=== PATIENT | male | born 1925 | race Caucasian/White ===

== ENCOUNTER → 2016-07-11 | Outpatient (CLI) | payer BC ==
[~2016-07-11] MED LIST: ALFA250T PO; ASCA500 PO; ASPI-435 PO; ATOR-26 PO; CALC500T83 PO; CHOL1000 PO; CIPR-255 PO; CMD5 PO; ISOS30TA3 PO; LSN5 PO; LVNIS100 SQ; METO25TA56 PO; MULT-506 PO; NTRGSL/4 UT; TICA1TAB PO; TPRSR/50 PO; TPRSR50 PO; WARF-246 PO; WARF6TAB5 PO
[2016-07-11 17:34] LABS: BASO % 0.3 %; BASO ABS # 0.02 K/uL (0-0.2); COMPLETE YES; EOS % 1.9 %; HEMATOCRIT 40.9 % (42-52); IG% 0.1 %; LYMPH % 19.6 %; LYMPH ABS # 1.45 K/uL (1.2-3.4); MEAN CELL VOLUME 98.6 fL (80-100); MEAN CORPUSCULAR HEMOGLOBIN 32.3 pg (25-34); MEAN CORPUSCULAR HGB CONC 32.8 g/dl (32-36); MEAN PLATELET VOLUME 11.4 fL (7.4-10.4); MONO % 8.8 %; NEUT % 69.3 %; PLATELET COUNT 142 K/uL (130-400); RED BLOOD COUNT 4.15 M/uL (4.7-6.1); WHITE BLOOD COUNT 7.38 K/uL (4.8-10.8)
[2016-07-11 17:48] LABS: ALT/SGPT 32 U/L (12-78); AST/SGOT 27 U/L (15-37); BLOOD UREA NITROGEN 21 mg/dl (7-18); BUN/CREATININE RATIO 21.6 (10-20); CALCIUM 8.7 mg/dl (8.5-10.1); CARBON DIOXIDE 28 mmol/L (21-32); CHLORIDE 107 mmol/L (98-107); CREATININE 0.99 mg/dl (0.60-1.40); GLUCOSE 87 mg/dl (70-99); POTASSIUM 4.3 mmol/L (3.5-5.1); SODIUM 141 mmol/L (136-145)
[2016-07-11 17:51] LABS: ALB/GLOB RATIO 1.3 (0.9-2); ALKALINE PHOSPHATASE 49 U/L (45-117); CHOLESTEROL 144 mg/dl (0-200); CHOLESTEROL/HDL RATIO 2.1; HDL CHOLESTEROL 70 mg/dl; LDL CHOLESTEROL CALCULATED 54 mg/dl; TRIGLYCERIDES 99 mg/dl (0-150); VERY LOW DENSITY LIPOPROT CALC 20 mg/dl
--- NOTE | 2016-07-18 11:21 | CODING QUERY MEDICAL NECESSITY ---
SUPPORTING DIAGNOSIS NEEDED Dr. Chicas, A supporting diagnosis is required for the test/procedure performed on this patient in order for us to be reimbursed by the patient's insurance. Please provide a supporting diagnosis for the following test/procedure listed below next to the test name along with your signature. *If there is no additional diagnosis for this patient that would support the following test/procedure please document that below next to the test/procedure. Test(s)/Procedure(s) that require a supporting diagnosis: * ([id number]) VITAMIN D ASSAY DIAGNOSIS: DATE OF SERVICE: 07/11/16 Provider Signature: Date: Thank you Abdoul Smiley [facility] Information Management Once completed, please kindly fax back to [phone] For questions please call [phone]
== END | disposition home or self-care (01) ==
LOC: C.LABPBG 11:08
PROVIDERS: ATTEND Internal Medicine Geriatric Medicine
DX: Z00.00 Encounter for general adult medical examination without abnormal findings (principal); M19.90 Unspecified osteoarthritis, unspecified site; E78.5 Hyperlipidemia, unspecified; R41.81 Age-related cognitive decline; R49.0 Dysphonia; I25.110 Atherosclerotic heart disease of native coronary artery with unstable angina pectoris

== ENCOUNTER 2016-08-14 06:20 | Inpatient (IN) | payer BC, OTHER ==
[~2016-08-14] VITALS: Ht 172.7 cm; Wt 66.0 kg
[~2016-08-14 06:20] MED LIST changes: -CIPR-255 PO; -CMD5 PO; -LSN5 PO; -LVNIS100 SQ; -TPRSR/50 PO; -TPRSR50 PO; -WARF-246 PO; -WARF6TAB5 PO
--- NOTE | 2016-08-14 07:04 | DIAGNOSTIC IMAGING REPORT ---
CHEST ONE VIEW PORTABLE CLINICAL HISTORY: Atypical chest pain. Dry cough. COMPARISON STUDY: 12/30/2015, 06/17/2015 FINDINGS: The cardiac and mediastinal contours remain stable. There is no focal pulmonary consolidation. There are no pleural effusions. There is no failure. There is a 1 cm right midlung zone opacity, similar to the preceding study. Increased interstitial markings are also present within the right midlung zone. IMPRESSION: Residual 1 cm right midlung zone opacity, similar to the preceding study, but smaller than on the prior examination dated 06/17/2015. No evidence of failure. No acute parenchymal consolidation Electronically signed by: Jacob Valentine M.D. 08/14/2016 7:03 AM Dictated Date/Time: 08/14/2016 7:00 AM
[2016-08-14 07:06] LABS: BASO % 0.9 %; BASO ABS # 0.08 K/uL (0-0.2); COMPLETE YES; EOS % 1.5 %; HEMATOCRIT 33.8 % (42-52); IG% 0.7 %; LYMPH % 14.3 %; LYMPH ABS # 1.21 K/uL (1.2-3.4); MEAN CELL VOLUME 94.4 fL (80-100); MEAN CORPUSCULAR HEMOGLOBIN 32.4 pg (25-34); MEAN CORPUSCULAR HGB CONC 34.3 g/dl (32-36); MEAN PLATELET VOLUME 9.7 fL (7.4-10.4); MONO % 5.5 %; NEUT % 77.1 %; PLATELET COUNT 258 K/uL (130-400); RED BLOOD COUNT 3.58 M/uL (4.7-6.1); WHITE BLOOD COUNT 8.49 K/uL (4.8-10.8)
[2016-08-14 07:10] LABS: POINT OF CARE PRO-BNP 4687 pg/ml (0-1800); POINT OF CARE TROPONIN I < 0.030 ng/ml (0-0.045)
[2016-08-14 07:17] LABS: BUN/CREATININE RATIO 17.6 (10-20); POTASSIUM 4.2 mmol/L (3.5-5.1)
[2016-08-14 07:22] LABS: CKMB/CK RATIO 4.3 (0-3.0)
[2016-08-14] MEDS ORDERED: ASPIRIN 81 MG CHEW PO STA (07:30)
--- NOTE | 2016-08-14 07:43 | EMERGENCY ROOM VISIT NOTE ---
History Report prepared by Yaritza: Jose Boyer Under the Supervision of: Dr. Josh Cali M.D. First contact with patient: 06:28 Chief Complaint: CHEST PAIN Stated Complaint: CHEST PAIN,NOT FEELING RIGHT,DRY COUGH History of Present Illness The patient is a 89 year old male who presents to the Emergency Room with complaints of constant chest pain beginning 2.5 hours ago. He describes the pain as "dull". He also complains of a non-productive cough, fatigue and weakness. The patient woke up this morning with his symptoms. He states that he has getting tired much more easily than usual. Per family, the patient has "not been feeling himself" for the past two weeks. They note that the patient has had a fever of 100 degrees. They note that the patient may have "blacked out" yesterday while sitting outside. The patient was seen in [facility] for his cough two weeks ago. His pain is not worsened with breathing. He denies any shortness of breath, black or bloody stool, headache, abdominal pain, diarrhea, urinary symptoms, abnormal back pain, or pain radiation. The patient denies any recent falls or trauma. He has a history of a previous OK occurring 1.5 years ago. He states that his pain associated with his OK is worse than his current pain. Source of History: patient, family Onset: 2.5 hours ago Position: chest Quality: dull Timing: constant Associated Symptoms: + fevers (100 degrees), + cough (non-productive), + fatigue, + weakness, No headache, No SOB, No abdominal pain, No back pain ( abnormal), No melena, No hematochezia, No diarrhea, No urinary symptoms Review of Systems See HPI for pertinent positives & negatives. A total of 10 systems reviewed and were otherwise negative. Past Medical & Surgical Medical Problems: (1) Heart attack (2) Laryngeal polyp (3) Pneumonia Old medical records were reviewed. Nurse's notes were reviewed and I agree with. Family History Diabetes mellitus FH: cancer Hypertension Social History Smoking Status: Never Smoker Alcohol Use: occasionally Marital Status: Housing Status: lives with family Current/Historical Medications Scheduled [place]ell (Somervell), 250 MG PO DAILY Ascorbic Acid (Vitamin C), 500 MG PO DAILY Aspirin (Aspirin 81), 81 MG PO DAILY Atorvastatin (Lipitor), 40 MG PO DAILY Calcium (Calcium), 500 MG PO DAILY Cholecalciferol (Vitamin D3), 1,000 UNITS PO DAILY Isosorbide Mononitrate Ext Rel (Imdur Ext Rel), 30 MG PO QAM Metoprolol Tartrate (Lopressor) (Lopressor), 25 MG PO BID Multivitamin (Multivitamin), 1 TAB PO DAILY Scheduled PRN Nitroglycerin (Nitrostat), 0.4 MG UT UD PRN for Chest Pain Allergies Coded Allergies: No Known Allergies (Verified , 08/14/16) Physical Exam Vital Signs Date Time Temp Pulse Resp B/P (MAP) Pulse Ox O2 Delivery O2 Flow Rate FiO2 08/14/16 09:15 79 18 144/93 08/14/16 08:45 95 Room Air 08/14/16 08:21 80 08/14/16 08:11 77 16 144/85 95 08/14/16 07:07 76 18 145/86 08/14/16 06:32 87 08/14/16 06:30 97 Room Air 08/14/16 06:29 Room Air 08/14/16 06:28 36.7 85 22 140/83 97 Room Air Physical Exam General: Well developed, well nourished older male in no acute distress, breathing comfortably on room air. Normal speech HEENT: Normal cephalic atraumatic. Pupils are equal round and reactive to light. Extraocular movements are intact. Oropharynx is pink with moist mucous membranes. No swelling of the mouth lips or tongue. Neck: Supple with a midline trachea. No meningeal signs or stiffness, no JVD or bruits. No Stridor. Chest: Clear to auscultation bilaterally. No wheezes or rhonchi. No increased work of breathing. Heart: regular rate and rhythm. Abdomen: Soft nontender, nondistended without rebound guarding or rigidity. Rectal: Normal tone. Brown stool, guaiac negative. Extremities: No cyanosis clubbing or edema. No calf tenderness or assymetry Spine/Back. Non tender to palpation. No CVA tenderness Skin: Good turgor without rashes. Neurologic exam: Cranial nerves two through 12 are intact. Motor and sensation are intact and symmetrical throughout. Medical Decision & Procedures ER Provider Diagnostic Interpretation: Radiology results as stated below per my review and radiologist interpretation: CT ANGIOGRAM OF THE CHEST FINDINGS: There is a 33 mm left renal cyst. Hilar lymph nodes are the upper limits of normal in size. There are no pathologically enlarged mediastinal or axillary lymph nodes. There was no evidence of thoracic aortic dilatation. There are small bilateral bony artery filling defects consistent with pulmonary emboli. There are small bilateral pleural effusions There are bilateral dependent airspace opacities. There is bilateral lower lobe bronchial wall thickening with areas of mucous plugging. There is a 23 mm right middle lobe nodular opacity. This is in an area of prior parenchymal consolidation could represent postinflammatory scarring. Continued follow-up is recommended. There is a partially calcified 5 mm right upper lobe pulmonary nodule. IMPRESSION: 1. Small bilateral pulmonary artery filling defects, indicative of bilateral pulmonary emboli 2. Small bilateral pleural effusions with dependent airspace opacities 3. 23 mm right middle lobe nodular opacity. This is in an area of prior parenchymal consolidation and could represent postinflammatory scarring. Continued follow-up is recommended Electronically signed by: Jacob Valentine M.D. CHEST ONE VIEW PORTABLE FINDINGS: The cardiac and mediastinal contours remain stable. There is no focal pulmonary consolidation. There are no pleural effusions. There is no failure. There is a 1 cm right midlung zone opacity, similar to the preceding study. Increased interstitial markings are also present within the right midlung zone. IMPRESSION: Residual 1 cm right midlung zone opacity, similar to the preceding study, but smaller than on the prior examination dated 06/17/2015. No evidence of failure. No acute parenchymal consolidation Electronically signed by: Jacob Valentine M.D. Laboratory Results 08/14/16 06:45 Red Blood Count 3.58, Mean Corpuscular Volume 94.4, Mean Corpuscular Hemoglobin 32.4, Mean Corpuscular Hemoglobin Concent 34.3, Mean Platelet Volume 9.7, Neutrophils (%) (Auto) 77.1, Lymphocytes (%) (Auto) 14.3, Monocytes (%) (Auto) 5.5, Eosinophils (%) (Auto) 1.5, Basophils (%) (Auto) 0.9, Neutrophils # (Auto) 6.54, Lymphocytes # (Auto) 1.21, Monocytes # (Auto) 0.47, Eosinophils # (Auto) 0.13, Basophils # (Auto) 0.08 08/14/16 06:45 Test 08/14/16 06:41 7/3/17 06:45 08/14/16 06:51 08/14/16 08:45 Bedside Lactic Acid Venous 1.07 mmol/L (0.90-1.70) White Blood Count 8.49 K/uL (4.8-10.8) Red Blood Count 3.58 M/uL (4.7-6.1) Hemoglobin 11.6 g/dL (14.0-18.0) Hematocrit 33.8 % (42-52) Mean Corpuscular Volume 94.4 fL (80-100) Mean Corpuscular Hemoglobin 32.4 pg (25-34) Mean Corpuscular Hemoglobin Concent 34.3 g/dl (32-36) Platelet Count 258 K/uL (130-400) Mean Platelet Volume 9.7 fL (7.4-10.4) Neutrophils (%) (Auto) 77.1 % Lymphocytes (%) (Auto) 14.3 % Monocytes (%) (Auto) 5.5 % Eosinophils (%) (Auto) 1.5 % Basophils (%) (Auto) 0.9 % Neutrophils # (Auto) 6.54 K/uL (1.4-6.5) Lymphocytes # (Auto) 1.21 K/uL (1.2-3.4) Monocytes # (Auto) 0.47 K/uL (0.11-0.59) Eosinophils # (Auto) 0.13 K/uL (0-0.5) Basophils # (Auto) 0.08 K/uL (0-0.2) RDW Standard Deviation 49.8 fL (36.4-46.3) RDW Coefficient of Variation 14.5 % (11.5-14.5) Immature Granulocyte % (Auto) 0.7 % Immature Granulocyte # (Auto) 0.06 K/uL (0.00-0.02) Anion Gap 7.0 mmol/L (3-11) Est Creatinine Clear Calc Drug Dose 48.4 ml/min Estimated GFR () 77.0 Estimated GFR (Non- 66.4 BUN/Creatinine Ratio 17.6 (10-20) Calcium Level 8.0 mg/dl (8.5-10.1) Total Bilirubin 0.5 mg/dl (0.2-1) Direct Bilirubin 0.2 mg/dl (0-0.2) Aspartate Amino Transf (AST/SGOT) 27 U/L (15-37) Alanine Aminotransferase (ALT/SGPT) 34 U/L (12-78) Alkaline Phosphatase 62 U/L (45-117) Total Creatine Kinase 61 U/L (39-308) Creatine Kinase MB 2.6 ng/ml (0.5-3.6) Creatine Kinase MB Ratio 4.3 (0-3.0) Total Protein 6.5 gm/dl (6.4-8.2) Albumin 2.3 gm/dl (3.4-5.0) Lipase 226 U/L (73-393) Bedside Troponin I < 0.030 ng/ml (0-0.045) KT-Shc-X-Type Natriuretic Peptide 4687 pg/ml (0-1800) Urine Color YELLOW Urine Appearance CLEAR (CLEAR) Urine pH 7.5 (4.5-7.5) Urine Specific [place] 1.027 (1.000-1.030) Urine Protein NEG (NEG) Urine Glucose (UA) NEG (NEG) Urine Ketones NEG (NEG) Urine Occult Blood NEG (NEG) Urine Nitrite NEG (NEG) Urine Bilirubin NEG (NEG) Urine Urobilinogen NEG (NEG) Urine Leukocyte Esterase NEG (NEG) Laboratory studies as stated above per my review. Medications Administered Medications (Trade) Dose Ordered Sig/Cecilia Route Start Time Stop Time Status Last Admin Dose Admin Aspirin (Aspirin Chew) 324 mg NOW STAT PO 08/14/16 07:30 08/14/16 07:31 DC 08/14/16 08:22 324 MG Heparin Sodium/ Dextrose 1 ea NOW STAT N/A 08/14/16 08:32 08/14/16 08:33 DC 08/14/16 08:32 1 EA Heparin Sodium/ Dextrose (Heparin 25,000 Unit/500ml D5W) 25,000 unit STK-MED ONCE .ROUTE 08/14/16 08:51 08/14/16 08:52 DC 08/14/16 09:12 25,000 UNIT Heparin Sodium (Porcine) (Heparin Sq 5000 Unit/0.5ml) 5,000 unit STK-MED ONCE .ROUTE 08/14/16 08:51 08/14/16 08:52 DC 08/14/16 09:12 5,000 UNIT ECG Indication: chest pain Rate (beats per minute): 85 Rhythm: normal sinus Findings: no acute ischemic change, no ectopy Comparison ECG Date: May 18, 2015 Change: no significant change ED Course 06: Past medical records reviewed. The patient was evaluated in room B3B, and a complete history and physical examination were performed. 07: I reassessed the patient. He is sleeping. Ordered Aspirin Chew 324 mg PO. 0832: Ordered Heparin Sodium/Dextrose. 0818: Upon reevaluation, the patient is resting comfortably. I discussed the results and treatment plan with the patient. He verbalized agreement of the treatment plan. The patient will be evaluated for further management. Medical Decision Differentials include, but are not limited to; acute coronary syndrome, arrythima, pneumonia, CHF, sepsis, anemia, and electrolyte or metabolic abnormality. This patient comes in as described above. He has not felt well for a couple weeks he had some vague chest pain last evening. He declined anything for pain now he does take aspirin but did not take it he was given aspirin 324 mg here. He has had a cough occasionally. I did a chest x-ray and there is no definite consolidation or CHF. There is some residual opacity in the right lung which looks smaller than compared to previous. EKG does not suggest acute coronary syndrome or arrhythmia. He may have had a fever 2 weeks ago but no fever now. He has no white count or elevation of his lactic acid. He has no significant electrolyte or metabolic abnormality. His BNP is elevated however he has no peripheral edema or any definite CHF on his chest x-ray. I also did order a chest CT to rule out PE and also further evaluate the lung abnormality on chest x-ray. CAT scan does reveal bilateral pulmonary emboli. I did a rectal exam and he has no blood either grossly or by him guaiac. He's had no recent surgery or history of GI bleeding or ulcers or trauma or anticoagulation use. He has no contraindications to anticoagulation. I did discuss the risks and benefits with the family and they freely consent. I discussed the case with Dr. Ortiz from the [facility] team. They will see the patient and she does recommend using the heparin weightbase protocol which I ordered. The patient will be admitted Consults Time Called: 0815 Consulting Physician: Dr. [place] [place]ed Call: 0818 Discussed the patient's case with Dr. Ortiz. The patient will be evaluated for further management. Impression Primary Impression: Bilateral pulmonary embolism Additional Impressions: Weakness Chest pain Scribe Attestation The scribe's documentation has been prepared under my direction and personally reviewed by me in its entirety. I confirm that the note above accurately reflects all work, treatment, procedures, and medical decision making performed by me. Departure Information Dispostion Being Evaluated By Hospitalist Referrals Raheem Chicas M.D. (PCP) Patient Instructions My [facility] Problem Qualifiers
[2016-08-14] MEDS ORDERED: OPTIRAY 320 IV PRN (07:45)
--- NOTE | 2016-08-14 08:02 | DIAGNOSTIC IMAGING REPORT ---
CT ANGIOGRAM OF THE CHEST CLINICAL HISTORY: Atypical chest pain. Cough. COMPARISON STUDY: Chest x-ray dated 08/14/2016 TECHNIQUE: Following the IV administration of 94 mL of Optiray-320, CT angiogram of the thorax was performed from the thoracic inlet to the lung bases utilizing the pulmonary embolus protocol. Images are reviewed in the axial, sagittal, and coronal planes. IV contrast was administered without complication. MIP imaging was performed. CT DOSE: 257.78 mGy.cm FINDINGS: There is a 33 mm left renal cyst. Hilar lymph nodes are the upper limits of normal in size. There are no pathologically enlarged mediastinal or axillary lymph nodes. There was no evidence of thoracic aortic dilatation. There are small bilateral bony artery filling defects consistent with pulmonary emboli. There are small bilateral pleural effusions There are bilateral dependent airspace opacities. There is bilateral lower lobe bronchial wall thickening with areas of mucous plugging. There is a 23 mm right middle lobe nodular opacity. This is in an area of prior parenchymal consolidation could represent postinflammatory scarring. Continued follow-up is recommended. There is a partially calcified 5 mm right upper lobe pulmonary nodule. IMPRESSION: 1. Small bilateral pulmonary artery filling defects, indicative of bilateral pulmonary emboli 2. Small bilateral pleural effusions with dependent airspace opacities 3. 23 mm right middle lobe nodular opacity. This is in an area of prior parenchymal consolidation and could represent postinflammatory scarring. Continued follow-up is recommended Electronically signed by: Jacob Valentine M.D. 08/14/2016 8:00 AM Dictated Date/Time: 08/14/2016 7:53 AM
[2016-08-14 08:45] VITALS: O2SAT 95; Ht 172.7 cm; Wt 66.0 kg
[2016-08-14] MEDS ORDERED: HEPARIN 25000 UNIT/500 ML D5W ONE (08:51)
[2016-08-14] MEDS ORDERED: HEPARIN SOD 5000 UNIT/0.5 ML CARP ONE (08:51)
[2016-08-14 08:59] LABS: PARTIAL THROMBOPLASTIN RATIO 1.1
[2016-08-14 09:01] LABS: URINE APPEARANCE CLEAR (CLEAR); URINE BILIRUBIN NEG (NEG); URINE COLOR YELLOW; URINE NITRITE NEG (NEG); URINE PH 7.5 (4.5-7.5); URINE SPECIFIC GRAVITY 1.027 (1.000-1.030); UROBILINOGEN NEG (NEG)
[2016-08-14 09:07] LABS: MANUAL MICROSCOPIC REQUIRED? NO; REVIEW REQ? NO
[2016-08-14] MEDS ORDERED: HEPARIN 25,000 UNIT/500ML D5W 500 ML IV PRN (09:15)
[2016-08-14] MEDS ORDERED: MAGNESIUM HYDROXIDE SUSP 30 ML UDC PO PRN (09:30)
[2016-08-14] MEDS ORDERED: ONDANSETRON INJ 2 MG/ML 2 ML VIAL IV PRN (09:30)
[2016-08-14] MEDS ORDERED: NITROGLYCERIN 0.4 MG SL PER TAB CHARGE UT PRN (09:30)
[2016-08-14] MEDS ORDERED: ACETAMINOPHEN 325 MG TAB PO PRN (09:30)
[2016-08-14] MEDS ORDERED: ALUMINUM/MAGNESIUM/SIMETH (MAALOX MAX) 30 ML UDC PO PRN (09:30)
[2016-08-14] MEDS ORDERED: POLYETHYLENE (MIRALAX) 17 GM PACK PO PRN (09:30)
--- NOTE | 2016-08-14 09:50 | History and Physical ---
History & Physical Date & Time of Service: Aug 14, 2016 at 09:32 Chief Complaint: Chest Pain,Not Feeling Right,Dry Cough Primary Care Physician: Raheem Chicas M.D. History of Present Illness Source: patient, family Mr. 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 He reports that he has not felt his normal self x 2 weeks. Reporting generalized fatigue and weakness. Noted to have a 100 degree fever during this course. Has also dealt with a nonproductive dry cough x 2 weeks and was seen in [facility] and prescribed a pill to help with the cough, they are unsure of its name but it was only to suppress cough. He reports some relief with this. Yesterday, per family he may have blacked out while sitting outside. This AM, he awoke to a dull CP that was bilateral and the lower levels of the chest. Pain is worsened with inspiration. He denies history of previous DVT/PE, recent trauma, or recent immobilization. Does not know of a significant FMHx of blood clotting disorders or multiple family members with H/O DVT/PE. He is a former smoke quitting nearly 60-70 years ago with an occasional pipe but again decades ago. Intermittently gets edema of the ankles which slightly worsened this week. He denies calf tenderness or erythema of the lower legs. He denies chills, SOB, N/V , abdominal pain, dysuria, constipation/diarrhea. In the ED, he is hemodynamically stable with adequate oxygenation on RA. CTA significant for small bilateral PEs and a 23 mm RML nodular opacity which was the site of a previous consolidation that may be scarring. He was initiated on a heparin gtt and will be admitted to telemetry. Past Medical/Surgical History Medical Problems: (1) Heart attack Status: Resolved (2) Laryngeal polyp Status: Resolved (3) Pneumonia Status: Resolved Family History Diabetes mellitus FH: cancer Hypertension Social History Smoking Status: Former Smoker Alcohol Use: socially Drug Use: none Marital Status: Immunizations History of Tetanus Vaccine?: Unknown History of Pneumococcal: No History of Hepatitis B Vaccine: No Multi-Drug Resistant Organisms History of MDRO: No Allergies Coded Allergies: No Known Allergies (Verified , 08/14/16) Home Medications Scheduled Robertson (Robertson), 250 MG PO DAILY Ascorbic Acid (Vitamin C), 500 MG PO DAILY Aspirin (Aspirin 81), 81 MG PO DAILY Atorvastatin (Lipitor), 40 MG PO DAILY Calcium (Calcium), 500 MG PO DAILY Cholecalciferol (Vitamin D3), 1,000 UNITS PO DAILY Isosorbide Mononitrate Ext Rel (Imdur Ext Rel), 30 MG PO QAM Metoprolol Tartrate (Lopressor) (Lopressor), 25 MG PO BID Multivitamin (Multivitamin), 1 TAB PO DAILY Scheduled PRN Nitroglycerin (Nitrostat), 0.4 MG UT UD PRN for Chest Pain Review of Systems Constitutional: + fever (RESOLVED), + weakness (generalized), + fatigue, No chills, No sweats Eyes: No worsening of vision ENT: + problem reported (chronic hoarseness), No nasal symptoms, No sore throat , No trouble swallowing Respiratory: + cough (nonproductive), No sputum, No wheezing, No shortness of breath Cardiovascular: + chest pain (bilateral lower chest) Abdomen: No pain, No nausea, No vomiting, No diarrhea, No constipation Musculoskeletal: + swelling (ankles bilat), No calf pain Genitourinary - Male: No dysuria Hematologic / Lymphatic: No abnormal bleeding/bruising, No clotting problems Integumentary: No rash Physical Exam Vital Signs Date Time Temp Pulse Resp B/P (MAP) Pulse Ox O2 Delivery O2 Flow Rate FiO2 08/14/16 09:15 79 18 144/93 08/14/16 08:45 95 Room Air 08/14/16 08:21 80 08/14/16 08:11 77 16 144/85 95 08/14/16 07:07 76 18 145/86 08/14/16 06:32 87 08/14/16 06:30 97 Room Air 08/14/16 06:29 Room Air 08/14/16 06:28 36.7 85 22 140/83 97 Room Air General Appearance: WD/WN, no apparent distress Head: normocephalic, atraumatic Eyes: sclerae normal ENT: hearing grossly normal Neck: supple, no JVD, trachea midline Respiratory/Chest: lungs clear, normal breath sounds, no respiratory distress, no accessory muscle use Cardiovascular: regular rate, rhythm, no gallop, no murmur Abdomen/GI: normal bowel sounds, non tender, soft Back: normal inspection, no CVA tenderness Extremities/Musculoskelatal: no calf tenderness, + swelling (trace pitting edema bilat ankles) Neurologic/Psych: alert, oriented x 3 Skin: normal color, warm/dry Diagnostics Laboratory Results Results Past 24 Hours Test 08/14/16 06:30 08/14/16 06:40 08/14/16 06:41 08/14/16 06:45 Range/Units Activated Partial Thromboplast Time 28.6 21.0-31.0 SECONDS Partial Thromboplastin Ratio 1.1 Creatine Kinase MB Ratio 4.3 0-3.0 Bedside Lactic Acid Venous 1.07 0.90-1.70 mmol/L White Blood Count 8.49 4.8-10.8 K/uL Red Blood Count 3.58 4.7-6.1 M/uL Hemoglobin 11.6 14.0-18.0 g/dL Hematocrit 33.8 42-52 % Mean Corpuscular Volume 94.4 80-100 fL Mean Corpuscular Hemoglobin 32.4 25-34 pg Mean Corpuscular Hemoglobin Concent 34.3 32-36 g/dl Platelet Count 258 130-400 K/uL Mean Platelet Volume 9.7 7.4-10.4 fL Neutrophils (%) (Auto) 77.1 % Lymphocytes (%) (Auto) 14.3 % Monocytes (%) (Auto) 5.5 % Eosinophils (%) (Auto) 1.5 % Basophils (%) (Auto) 0.9 % Neutrophils # (Auto) 6.54 1.4-6.5 K/uL Lymphocytes # (Auto) 1.21 1.2-3.4 K/uL Monocytes # (Auto) 0.47 0.11-0.59 K/uL Eosinophils # (Auto) 0.13 0-0.5 K/uL Basophils # (Auto) 0.08 0-0.2 K/uL RDW Standard Deviation 49.8 36.4-46.3 fL RDW Coefficient of Variation 14.5 11.5-14.5 % Immature Granulocyte % (Auto) 0.7 % Immature Granulocyte # (Auto) 0.06 0.00-0.02 K/uL Sodium Level 137 136-145 mmol/L Potassium Level 4.2 3.5-5.1 mmol/L Chloride Level 104 98-107 mmol/L Carbon Dioxide Level 26 21-32 mmol/L Anion Gap 7.0 3-11 mmol/L Blood Urea Nitrogen 18 7-18 mg/dl Creatinine 1.00 0.60-1.40 mg/dl Est Creatinine Clear Calc Drug Dose 48.4 ml/min Estimated GFR () 77.0 Estimated GFR (Non- 66.4 BUN/Creatinine Ratio 17.6 10-20 Random Glucose 93 70-99 mg/dl Calcium Level 8.0 8.5-10.1 mg/dl Total Bilirubin 0.5 0.2-1 mg/dl Direct Bilirubin 0.2 0-0.2 mg/dl Aspartate Amino Transf (AST/SGOT) 27 15-37 U/L Alanine Aminotransferase (ALT/SGPT) 34 12-78 U/L Alkaline Phosphatase 62 45-117 U/L Total Creatine Kinase 61 39-308 U/L Creatine Kinase MB 2.6 0.5-3.6 ng/ml Total Protein 6.5 6.4-8.2 gm/dl Albumin 2.3 3.4-5.0 gm/dl Lipase 226 73-393 U/L Test 08/14/16 06:51 08/14/16 08:45 Range/Units Bedside Troponin I < 0.030 0-0.045 ng/ml [id number] Natriuretic Peptide 4687 0-1800 pg/ml Urine Color YELLOW Urine Appearance CLEAR CLEAR Urine pH 7.5 4.5-7.5 Urine Specific [place] 1.027 1.000-1.030 Urine Protein NEG NEG Urine Glucose (UA) NEG NEG Urine Ketones NEG NEG Urine Occult Blood NEG NEG Urine Nitrite NEG NEG Urine Bilirubin NEG NEG Urine Urobilinogen NEG NEG Urine Leukocyte Esterase NEG NEG Microbiology Results 08/14/16 Blood Culture, Received Pending 08/14/16 Urine Culture, Received Pending Diagnostic Radiology CT ANGIOGRAM OF THE CHEST FINDINGS: There is a 33 mm left renal cyst. Hilar lymph nodes are the upper limits of normal in size. There are no pathologically enlarged mediastinal or axillary lymph nodes. There was no evidence of thoracic aortic dilatation. There are small bilateral bony artery filling defects consistent with pulmonary emboli. There are small bilateral pleural effusions There are bilateral dependent airspace opacities. There is bilateral lower lobe bronchial wall thickening with areas of mucous plugging. There is a 23 mm right middle lobe nodular opacity. This is in an area of prior parenchymal consolidation could represent postinflammatory scarring. Continued follow-up is recommended. There is a partially calcified 5 mm right upper lobe pulmonary nodule. IMPRESSION: 1. Small bilateral pulmonary artery filling defects, indicative of bilateral pulmonary emboli 2. Small bilateral pleural effusions with dependent airspace opacities 3. 23 mm right middle lobe nodular opacity. This is in an area of prior parenchymal consolidation and could represent postinflammatory scarring. Continued follow-up is recommended EKG Normal sinus rhythm Normal ECG When compared with ECG of 18-MAY-2015 11:21, No significant change was found Impression Assessment and Plan Mr. 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 CTA confirmed bilateral PEs Bilateral Pulmonary Embolism: - Unknown precipitating factor - unprovoked? -- Imaging is significant for 23 mm nodular opacity which was a site of consolidation in the past and may be scarring - does have a H/O smoking - Heparin gtt initiated in ED and will continue - Will need to discuss anticoagulation - Coumadin vs NOAC - Admit to tele and monitor rhythm - Obtain serial cardiac enzymes and echo - as patient had a possible syncope event and evaluate for any evidence of R heart strain rosa. in setting of previous NSTEMI - Await venous dopplers - Consult pulmonology - 23 mm nodular opacity of any significance? NSTEMI S/P RCA JHONATAN x 2: Follows with Dr. Busch - STABLE - ASA 81 mg daily - Atorvastatin 40 mg daily - Isosorbide mononitrite 60 mg daily - Metoprolol Succ 25 mg BID Laryngeal Polyp with Removal and Chronic Hoarseness: Follows with Brian NUNEZ - STABLE DVT Prophylaxis: Heparin gtt Code Status: FULL RESUSCITATION Disposition: - From home and will get PT/OT evaluations - Pending anticoagulation may need insurance approval for cost Level of Care Telemetry Advanced Directives Existing Living Will: No Existing Power of Campus Interviews Intern: No Resuscitation Status FULL RESUSCITATION VTE Prophylaxis VTE Risk Assessment Done? Y/N: Yes Risk Level: Moderate Given or contraindicated: Unfractionated heparin SQ
--- NOTE | 2016-08-14 09:56 | DIAGNOSTIC IMAGING REPORT ---
BILATERAL LOWER EXTREMITY VENOUS DOPPLER HISTORY: Pain. Edema. eval for DVT COMPARISON STUDY: None. FINDINGS: There is normal compressibility, flow, and augmentation within the bilateral lower extremity deep venous systems. IMPRESSION: No DVT within the right or left lower extremity. Electronically signed by: Lobo Velázquez M.D. 08/14/2016 9:55 AM Dictated Date/Time: 08/14/2016 9:55 AM
[2016-08-14] MEDS ORDERED: NURSING VERBAL MED ORDER ONE (11:30)
[2016-08-14 11:39] VITALS: BP 158/86; PULSE 77; TEMP 36.8; O2SAT 97
[2016-08-14] MEDS ORDERED: METOPROLOL SUCC 25MG EXT REL TAB PO ONE (11:45)
[2016-08-14] MEDS ORDERED: ISOSORBIDE MONONITRATE 60 MG TABCR PO ONE (11:45)
[2016-08-14] MEDS ORDERED: ATORVASTATIN 40 MG TAB PO ONE (11:45)
[2016-08-14 11:52] VITALS: BP 142/84; PULSE 78; TEMP 36.5; O2SAT 97
[2016-08-14 15:28] VITALS: BP 138/79; PULSE 76; TEMP 36.8; O2SAT 95
[2016-08-14 16:21] LABS: PARTIAL THROMBOPLASTIN RATIO 3.3
--- NOTE | 2016-08-14 16:42 | Pulmonary Consultation ---
History General Date of Service: Aug 14, 2016. Stated Complaint: Bilateral Pulmonary Embolism HPI The patient is a 89 year old male who presents to [facility] with complaints of Bilateral Pulmonary Embolism. The patient's primary care provider is Raheem Chicas M.D.. The patient has been not feeling well for approximately 2 weeks or so. His family reported that he was not himself. The patient has a hard time describing what his symptoms were. He has had some vague chest discomfort on both sides for about 2 weeks. He's had a dry cough. There is been no sputum production and no hemoptysis. He denies any chills or fevers or sweats. Apparently he has been somewhat fatigued and a little weaker than normal. The patient states that he had been feeling very good until the onset of this illness. About 2 weeks ago he went to the [facility] emergency room. The patient could not tell me what their opinion was or what they treated him with. His memory and recall didn't seem to be all that extraordinary. The patient states that his appetite is been okay. There's been either no change her most a slight decrease. He denies any bowel complaints. The only prior x-ray shows a significant infiltrate in May 2015. It appears that he was hospitalized for 2 or 3 days at that time. The x-rays suggested a significant opacification in the right lower lung field that probably was in right middle lobe area. Follow-up x-rays on 06/27/2015 showed a decrease in size of the opacification but was still fairly dense. A follow-up x-ray in December 2015 showed a decrease in the opacity. As result of the patient's discomfort he had a CAT scan of the chest done today. This showed evidence of fairly small bilateral pulmonary emboli. He had small effusions. There was a right middle lobe opacification measuring up to 23 mm that was somewhat irregular and in the general area of where the previously seen infiltrates had been. Review of Systems Gen.: Patient's energy level has been decreased and he has been fatigued. Neurologic: Denies syncope or near syncope Ophthalmic: Denies visual complaints ENT: Denies nasal congestion or coryza Cardiac: He's had the vague chest pains as noted above. He has not noticed any palpitations. Pulmonary: As noted in history of present illness GI: Denies any bowel complaints. Denies heartburn or indigestion or abdominal pain. : Denies complaints Musculoskeletal: Has a history of DJD but denies any myalgias or arthralgias at present Dermatologic: No rashes Endocrine: No adenopathy Past Medical History Past Medical History: [place] Coronary artery disease Laryngeal polyp Pneumonia 2016 Hypertension Chronic hoarseness DJD Past Surgical History: Cataract surgery right and left Vocal cord polyp Family History Diabetes mellitus FH: cancer Hypertension Social History Tobacco: Smoked some cigarettes in his 20s then subsequently smoked a pipe for a few years. None for many years. EtOH: The patient makes wine and drinks typically 1 glass on most days with an occasional beer. Hx Tobacco Use In Past Year?: No Smoking Status: Former Smoker Marital status: Immunizations History of Tetanus Vaccine?: Unknown History of Pneumococcal: No History of Hepatitis B Vaccine: No History of MDRO History of MDRO: No Allergies Coded Allergies: No Known Allergies (Verified , 08/14/16) Current Medications Reported Home Medications Medications Dose Route/Sig Max Daily Dose Days Date Category Dose Instructions [facility] 250 Mg Tab 250 Mg PO DAILY 05/18/15 Reported Vitamin D3 (Cholecalciferol) 1,000 Unit Tab 1,000 Units PO DAILY 05/18/15 Reported Calcium 500 Mg Tab 500 Mg PO DAILY 05/18/15 Reported Vitamin C (Ascorbic Acid) 500 Mg Tab 500 Mg PO DAILY 05/18/15 Reported Multivitamin (Multivitamins) Tab 1 Tab PO DAILY 05/18/15 Reported Imdur Ext Rel (Isosorbide Mononitrate) 30 Mg Ertab 30 Mg PO QAM 05/18/15 Reported Nitrostat (Nitroglycerin) 0.4 Mg Tab 0.4 Mg UT UD PRN 01/25/15 Reported Lipitor (Atorvastatin Calcium) 80 Mg Tab 40 Mg PO DAILY 01/25/15 Reported 1/2 tablet dose Aspirin 81 (Aspirin) 81 Mg Tab 81 Mg PO DAILY 01/25/15 Reported Lopressor (Metoprolol Tartrate) 25 Mg Tab 25 Mg PO BID 01/25/15 Reported Physical Physical Exam Vital Signs: Date Time Temp Pulse Resp B/P (MAP) Pulse Ox O2 Delivery O2 Flow Rate FiO2 08/14/16 15:28 36.8 76 20 138/79 (98) 95 Room Air 08/14/16 12:00 Room Air 08/14/16 11:52 36.5 78 16 142/84 (103) 97 Room Air 08/14/16 11:39 36.8 77 16 158/86 (110) 97 Room Air 08/14/16 10:46 140/83 08/14/16 10:29 81 18 140/83 98 Room Air 08/14/16 09:15 79 18 144/93 08/14/16 08:45 95 Room Air 08/14/16 08:21 80 08/14/16 08:11 77 16 144/85 95 08/14/16 07:07 76 18 145/86 08/14/16 06:32 87 08/14/16 06:30 97 Room Air 08/14/16 06:29 Room Air 08/14/16 06:28 36.7 85 22 140/83 97 Room Air The patient is a 89-year-old male who was cooperative alert and oriented. He was in no distress at rest. Eye exam showed evidence of implants bilaterally. Nares were clear. Mouth exam was unremarkable. Palpation of the neck reveals no lymph nodes or masses. The chest was of normal expansion and development. The temperature is 36.8. The heart rate was 76 bpm. The rhythm was regular. The blood pressure is 138/ 79. Auscultation of the lung gerard revealed them to be clear. The respiratory rate was 20 breaths per minute and not labored. The oxygen saturation was 95% on room air. The abdomen was soft. Good bowel sounds were heard. There was no tenderness to palpation, masses, or organomegaly. Extremities showed no cyanosis clubbing or edema. Diagnostics Labs Results Past 24 Hours Test 08/14/16 06:30 08/14/16 06:40 08/14/16 06:41 08/14/16 06:45 Range/Units Activated Partial Thromboplast Time 28.6 21.0-31.0 SECONDS Partial Thromboplastin Ratio 1.1 Creatine Kinase MB Ratio 4.3 0-3.0 Bedside Lactic Acid Venous 1.07 0.90-1.70 mmol/L White Blood Count 8.49 4.8-10.8 K/uL Red Blood Count 3.58 4.7-6.1 M/uL Hemoglobin 11.6 14.0-18.0 g/dL Hematocrit 33.8 42-52 % Mean Corpuscular Volume 94.4 80-100 fL Mean Corpuscular Hemoglobin 32.4 25-34 pg Mean Corpuscular Hemoglobin Concent 34.3 32-36 g/dl Platelet Count 258 130-400 K/uL Mean Platelet Volume 9.7 7.4-10.4 fL Neutrophils (%) (Auto) 77.1 % Lymphocytes (%) (Auto) 14.3 % Monocytes (%) (Auto) 5.5 % Eosinophils (%) (Auto) 1.5 % Basophils (%) (Auto) 0.9 % Neutrophils # (Auto) 6.54 1.4-6.5 K/uL Lymphocytes # (Auto) 1.21 1.2-3.4 K/uL Monocytes # (Auto) 0.47 0.11-0.59 K/uL Eosinophils # (Auto) 0.13 0-0.5 K/uL Basophils # (Auto) 0.08 0-0.2 K/uL RDW Standard Deviation 49.8 36.4-46.3 fL RDW Coefficient of Variation 14.5 11.5-14.5 % Immature Granulocyte % (Auto) 0.7 % Immature Granulocyte # (Auto) 0.06 0.00-0.02 K/uL Sodium Level 137 136-145 mmol/L Potassium Level 4.2 3.5-5.1 mmol/L Chloride Level 104 98-107 mmol/L Carbon Dioxide Level 26 21-32 mmol/L Anion Gap 7.0 3-11 mmol/L Blood Urea Nitrogen 18 7-18 mg/dl Creatinine 1.00 0.60-1.40 mg/dl Est Creatinine Clear Calc Drug Dose 48.4 ml/min Estimated GFR () 77.0 Estimated GFR (Non- 66.4 BUN/Creatinine Ratio 17.6 10-20 Random Glucose 93 70-99 mg/dl Calcium Level 8.0 8.5-10.1 mg/dl Total Bilirubin 0.5 0.2-1 mg/dl Direct Bilirubin 0.2 0-0.2 mg/dl Aspartate Amino Transf (AST/SGOT) 27 15-37 U/L Alanine Aminotransferase (ALT/SGPT) 34 12-78 U/L Alkaline Phosphatase 62 45-117 U/L Total Creatine Kinase 61 39-308 U/L Creatine Kinase MB 2.6 0.5-3.6 ng/ml Total Protein 6.5 6.4-8.2 gm/dl Albumin 2.3 3.4-5.0 gm/dl Lipase 226 73-393 U/L Test 08/14/16 06:51 08/14/16 08:45 08/14/16 15:15 Range/Units Bedside Troponin I < 0.030 0-0.045 ng/ml [id number] Natriuretic Peptide 4687 0-1800 pg/ml Urine Color YELLOW Urine Appearance CLEAR CLEAR Urine pH 7.5 4.5-7.5 Urine Specific [place] 1.027 1.000-1.030 Urine Protein NEG NEG Urine Glucose (UA) NEG NEG Urine Ketones NEG NEG Urine Occult Blood NEG NEG Urine Nitrite NEG NEG Urine Bilirubin NEG NEG Urine Urobilinogen NEG NEG Urine Leukocyte Esterase NEG NEG Troponin I < 0.015 0-0.045 ng/ml Microbiology Results 08/14/16 Blood Culture, Received Pending 08/14/16 Urine Culture, Received Pending Impression Assessment and Plan Impressions: #1 acute pulmonary embolism bilaterally #2 right middle lobe opacity Comments and recommendations: The patient appears clinically stable. He is now on IV heparin. The venous Doppler of the lower extremities was negative. Thus we don't know the source of the pulmonary emboli. In terms of long-term treatments it may be best to have a conversation with the patient and his family and see what works best for them. Either Coumadin or Xaralto or Eliquis would be options. The patient does not appear to have a history of falling. He does not have any history of GI bleeding or other bleeding. He should have routine follow-up of the density seen in the right middle lobe. I'm less inclined to think that this is malignant and will likely do think it is related to her prior infection in this area. Nonetheless he should have some routine follow-up in this regard. It appears to me that the x-rays have improved gradually compared with the pneumonia he had in 2016 and this density seems to be in that area. I could not explain the significant elevation of the proBNP level. He clinically did not seem to be in congestive heart failure. Radiographically he did not appear to be in congestive heart failure. Thank you for asking me to assist in his care.
[2016-08-14 19:54] VITALS: BP 133/78; PULSE 79; TEMP 36.8; O2SAT 96
[2016-08-14] MEDS: METOPROLOL SUCC 25MG EXT REL TAB PO SCH (20:53)
--- NOTE | 2016-08-14 21:41 | ECHOCARDIOGRAM REPORT ---
*NOTICE TO RECEIVING DEMOCRAT AGENCY This information is strictly Confidential and protected under [place] law. [place] law prohibits you from making any further disclosure of this information unless further disclosure is expressly permitted by the written consent of the person to whom it pertains or is authorized by law. A general authorization for the release of medical or other information is not sufficient for this purpose. Hospital accepts no responsibility if the information is made available to any other person, INCLUDING THE PATIENT. Interpretation Summary * Name: JEIMY PRAKASH Study Date: 08/14/2016 02:36 PM BP: 142/84 mmHg * Patient Location: C.2T\S\S240\S\1 HR: 78 * : 1925 (M/d/yyyy) Gender: Male Height: 68 in * Age: 89 yrs Ethnicity: CA Weight: 150 lb * Ordering Physician: Mireya Varela * Performed By: Eden Tran * * Reason For Study: PE * BSA: 1.8 m2 * Normal biventricular systolic function. * Mild concentric left ventricular hypertrophy. * Class 2 LV diastolic dysfunction. * Trace aortic, mitral, and tricuspid regurgitation. * -- Conclusions -- * Aortic valve sclerosis moderate, without significant aortic valvular stenosis. Procedure Details * A complete two-dimensional transthoracic echocardiogram was performed (2D, M-mode, Doppler and color flow Doppler). Left Ventricle * The left ventricle is normal in size. * There is mild concentric left ventricular hypertrophy. * Ejection Fraction = 60-65%. * Left ventricular systolic function is normal. * A full diastolic examination was done with clinical findings of Class II diastolic dysfunction. * The left ventricular wall motion is normal. Right Ventricle * The right ventricle is normal in size and function. * The right ventricular systolic function is normal as assessed by tricuspid annular plane systolic excursion (TAPSE) (normal >1.5 cm). Atria * Borderline left atrial enlargement. * Right atrial size is normal. * No ASD detected; PFO is not assessed. Mitral Valve * The mitral valve is normal. * There is no mitral valve stenosis. * There is trace mitral regurgitation. Tricuspid Valve * The tricuspid valve is not well visualized, but is grossly normal. * There is trace tricuspid regurgitation. * Right ventricular systolic pressure is normal. Aortic Valve * The aortic valve is trileaflet. * Aortic valve sclerosis moderate, without significant aortic valvular stenosis. * Trace aortic regurgitation. Pulmonic Valve * The pulmonic valve is not well visualized. * The pulmonary valve is inadequately visualized, but the Doppler data is adequate for interpretation. * There is no pulmonic valvular stenosis. * There is no significant pulmonary regurgitation. Great Vessels * The aortic root is normal size. Pericardium/Pleural * There is no pericardial effusion. Great Vessels * Normal inferior vena cava diameter and respiratory variation suggests normal central venous pressure. MMode 2D Measurements and Calculations IVSd 1.4 cm IVSs 1.8 cm LVIDd 3.9 cm LVIDs 2.6 cm LVPWd 1.4 cm LVPWs 2.3 cm IVS/LVPW 0.99 FS 34.0 % EDV(Teich) 65.1 ml ESV(Teich) 23.7 ml EF(Teich) 63.6 % EDV(cubed) 58.4 ml ESV(cubed) 16.8 ml EF(cubed) 71.2 % % IVS thick 32.7 % % LVPW thick 65.0 % LV mass(C)d 193.2 grams LV mass(C)dI 106.8 grams/m\S\2 LV mass(C)s 230.2 grams LV mass(C)sI 127.3 grams/m\S\2 CO(Teich) 3.2 l/min CI(Teich) 1.8 l/min/m\S\2 SV(Teich) 41.4 ml SI(Teich) 22.9 ml/m\S\2 CO(cubed) 3.2 l/min CI(cubed) 1.8 l/min/m\S\2 SV(cubed) 41.6 ml SI(cubed) 23.0 ml/m\S\2 Ao root diam 3.3 cm Ao root area 8.7 cm\S\2 ACS 1.6 cm LA dimension 3.9 cm asc Aorta Diam 3.2 cm LA/Ao 1.2 LVOT diam 1.9 cm LVOT area 2.7 cm\S\2 LVAd ap4 24.4 cm\S\2 LVLd ap4 7.5 cm EDV(MOD-sp4) 65.4 ml LVAs ap4 13.3 cm\S\2 LVLs ap4 6.5 cm ESV(MOD-sp4) 22.6 ml EF(MOD-sp4) 65.4 % LVAd ap2 19.3 cm\S\2 LVLd ap2 7.2 cm EDV(MOD-sp2) 42.6 ml LVAs ap2 9.2 cm\S\2 LVLs ap2 5.7 cm ESV(MOD-sp2) 15.3 ml EF(MOD-sp2) 64.1 % CO(MOD-sp4) 3.3 l/min CI(MOD-sp4) 1.8 l/min/m\S\2 SV(MOD-sp4) 42.8 ml SI(MOD-sp4) 23.7 ml/m\S\2 CO(MOD-sp2) 2.1 l/min CI(MOD-sp2) 1.2 l/min/m\S\2 SV(MOD-sp2) 27.3 ml SI(MOD-sp2) 15.1 ml/m\S\2 Doppler Measurements and Calculations MV E max alona 82.3 cm/sec MV A max alona 74.0 cm/sec MV E/A 1.1 MV dec time 0.22 sec Ao V2 max 123.8 cm/sec Ao max PG 6.1 mmHg Ao max PG (full) 3.1 mmHg BUNNY(V,A) 1.9 cm\S\2 BUNNY(V,D) 1.9 cm\S\2 AI max alona 406.6 cm/sec AI max PG 66.2 mmHg AI dec slope 182.4 cm/sec\S\2 AI P1/2t 653.0 msec LV V1 max PG 3.0 mmHg LV V1 max 86.4 cm/sec PA V2 max 69.8 cm/sec PA max PG 2.0 mmHg TR max alona 246.4 cm/sec
[2016-08-14 23:47] VITALS: BP 160/80; PULSE 77; TEMP 36.5; O2SAT 96
[2016-08-14 23:52] LABS: PARTIAL THROMBOPLASTIN RATIO 2.1
[2016-08-15 03:59] VITALS: BP 163/87; PULSE 81; TEMP 36.6; O2SAT 96
[2016-08-15 07:48] VITALS: BP 163/85; PULSE 82; TEMP 36.6; O2SAT 95
[2016-08-15 07:59] LABS: HEMATOCRIT 34.4 % (42-52); MEAN CELL VOLUME 94.2 fL (80-100); MEAN CORPUSCULAR HEMOGLOBIN 32.1 pg (25-34); MEAN PLATELET VOLUME 9.8 fL (7.4-10.4); PLATELET COUNT 245 K/uL (130-400); RED BLOOD COUNT 3.65 M/uL (4.7-6.1)
[2016-08-15] MEDS: MULTIVITAMIN TAB PO SCH (08:15)
[2016-08-15] MEDS: ATORVASTATIN 40 MG TAB PO SCH (08:15)
[2016-08-15] MEDS: METOPROLOL SUCC 25MG EXT REL TAB PO SCH (08:15)
[2016-08-15] MEDS: ASPIRIN 81 MG ECTAB PO SCH (08:15)
[2016-08-15] MEDS: ISOSORBIDE MONONITRATE 30 MG TABCR PO SCH (08:16)
[2016-08-15] MEDS: ASCORBIC ACID 500 MG TAB PO SCH (08:16)
[2016-08-15 08:27] LABS: CALCIUM 8.2 mg/dl (8.5-10.1); CREATININE 0.93 mg/dl (0.60-1.40); POTASSIUM 4.3 mmol/L (3.5-5.1)
[2016-08-15] MEDS ORDERED: LISINOPRIL 5 MG TAB PO ONE (10:15)
--- NOTE | 2016-08-15 10:16 | Pulmonology Progress Note ---
Pulmonary Progress Note Date of Service Aug 15, 2016. Attending Dr. Perdomo Subjective The patient states he generally feels better. He denies cough or shortness of breath. He is not having any chest pains. He states he slept well. Objective The patient is comfortable at rest. He was cooperative alert and oriented. Temperature is 36.6. ENT exam is unremarkable. Heart rate was 82/m. Blood pressure is elevated at 163/85. Lung gerard are clear bilaterally. Respiratory rate was 16 breaths per minute and not labored. Oxygen saturation was 95% on room air. Extremities showed no cyanosis clubbing or edema. Echocardiogram showed normal left ventricular function. There was class II diastolic dysfunction. Assessment & Plan Impressions: #1 acute pulmonary embolism #2 right middle lobe opacity-most likely benign but needs follow-up Comments and recommendations: The case was discussed with Dr. Regalado. He had met with the patient's family. Apparently they discussed options for anticoagulation. We are thinking at present that probably Coumadin might be the best for this patient. Dr. Regalado was going to change him from heparin to Lovenox while the bridges made over to Coumadin. The patient's echo was only mildly abnormal. The patient doesn't clinically seem to have congestive heart failure. The BNP was elevated at 4687. Data Medications: Current Inpatient Medications Medications (Trade) Dose Ordered Sig/Cecilia Route Start Time Stop Time Status Last Admin Dose Admin Ioversol (Optiray 320) 100 ml UD PRN IV 08/14/16 07:45 08/18/16 07:44 Heparin Sodium/ Dextrose 500 ml @ 22 mls/hr [id number] PRN IV 08/14/16 09:15 09/13/16 09:14 Acetaminophen (Tylenol Tab) 650 mg Q4H PRN PO 08/14/16 09:30 09/13/16 09:29 Al Hydrox/Mg Hydrox/Simethicone (Maalox Max Susp) 15 ml Q4H PRN PO 08/14/16 09:30 09/13/16 09:29 Magnesium Hydroxide (Milk Of Magnesia Susp) 30 ml Q12H PRN PO 08/14/16 09:30 09/13/16 09:29 Ondansetron HCl (Zofran Inj) 4 mg Q6H PRN IV 08/14/16 09:30 09/13/16 09:29 Polyethylene (Miralax Powder Packet) 17 gm DAILY PRN PO 08/14/16 09:30 09/13/16 09:29 Ascorbic Acid (Vitamin C Tab) 500 mg DAILY PO 08/15/16 09:00 09/14/16 08:59 08/15/16 08:16 500 MG Aspirin (Ecotrin Tab) 81 mg DAILY PO 08/15/16 09:00 09/14/16 08:59 08/15/16 08:15 81 MG Atorvastatin Calcium (Lipitor Tab) 40 mg DAILY PO 08/15/16 09:00 09/14/16 08:59 08/15/16 08:15 40 MG Isosorbide Mononitrate (Imdur Ext Rel Tab) 60 mg QAM PO 08/15/16 09:00 09/14/16 08:59 08/15/16 08:16 60 MG Multivitamins (Multivitamin Tab) 1 tab DAILY PO 08/15/16 09:00 09/14/16 08:59 08/15/16 08:15 1 TAB Nitroglycerin (Nitrostat Tab) 0.4 mg UD PRN UT 08/14/16 09:30 09/13/16 09:29 Metoprolol Succinate (Toprol Xl Tab) 25 mg BID PO 08/14/16 21:00 09/13/16 20:59 08/15/16 08:15 25 MG Cholecalciferol (Vitamin D Tab) 1,000 inter.unit DAILY PO 08/16/16 09:00 09/15/16 08:59 UNV Non-Formulary Medication (Calcium ) 500 mg DAILY PO 08/16/16 09:00 09/15/16 08:59 UNV Vital Signs: Date Time Temp Pulse Resp B/P (MAP) Pulse Ox O2 Delivery O2 Flow Rate FiO2 08/15/16 08:00 Room Air 08/15/16 07:48 36.6 82 16 163/85 (111) 95 Room Air 08/15/16 04:00 Room Air 08/15/16 03:59 36.6 81 18 163/87 (112) 96 Room Air 08/15/16 00:00 Room Air 08/14/16 23:47 36.5 77 15 160/80 (106) 96 Room Air 08/14/16 20:00 Room Air 08/14/16 19:54 36.8 79 18 133/78 (96) 96 Room Air 08/14/16 16:00 Room Air 08/14/16 15:28 36.8 76 20 138/79 (98) 95 Room Air 08/14/16 12:00 Room Air 08/14/16 11:52 36.5 78 16 142/84 (103) 97 Room Air 08/14/16 11:39 36.8 77 16 158/86 (110) 97 Room Air 08/14/16 10:46 140/83 08/14/16 10:29 81 18 140/83 98 Room Air Laboratory Results: Last 24 Hours Test 08/14/16 15:15 08/14/16 19:48 08/14/16 23:25 08/15/16 07:39 Activated Partial Thromboplast Time 85.0 SECONDS 54.5 SECONDS Partial Thromboplastin Ratio 3.3 2.1 Troponin I < 0.015 ng/ml < 0.015 ng/ml White Blood Count 8.10 K/uL Red Blood Count 3.65 M/uL Hemoglobin 11.7 g/dL Hematocrit 34.4 % Mean Corpuscular Volume 94.2 fL Mean Corpuscular Hemoglobin 32.1 pg Mean Corpuscular Hemoglobin Concent 34.0 g/dl RDW Standard Deviation 50.1 fL RDW Coefficient of Variation 14.8 % Platelet Count 245 K/uL Mean Platelet Volume 9.8 fL Sodium Level 136 mmol/L Potassium Level 4.3 mmol/L Chloride Level 105 mmol/L Carbon Dioxide Level 25 mmol/L Anion Gap 6.0 mmol/L Blood Urea Nitrogen 13 mg/dl Creatinine 0.93 mg/dl Est Creatinine Clear Calc Drug Dose 49.9 ml/min Estimated GFR () 84.1 Estimated GFR (Non- 72.5 BUN/Creatinine Ratio 14.0 Random Glucose 97 mg/dl Calcium Level 8.2 mg/dl
[2016-08-15 11:55] VITALS: BP 107/69; PULSE 82; TEMP 36.6; O2SAT 98
--- NOTE | 2016-08-15 12:34 | Progress Note ---
Subjective Date of Service: Aug 15, 2016. Subjective Pt evaluation today including: conversation w/ patient, conversation w/ family , physical exam, chart review, lab review, review of studies, conversation w/ senior solutions workflow consultant, review of inpatient medication list Doing okay, no chest pain, eating and drinking good, no sign of bleedings Problem List Medical Problems: (1) Bilateral pulmonary embolism Status: Acute (2) Chest pain Status: Acute (3) Pneumonia Status: Acute (4) Weakness Status: Acute Review of Systems Constitutional: No fever, No chills, No sweats, No weight loss, No weakness, No fatigue, No problem reported Eyes: No worsening of vision, No eye pain, No redness, No discharge, No diplopia ENT: No hearing loss, No unusual epistaxis, No nasal symptoms, No sore throat, No tinnitus, No dental problems, No trouble swallowing Respiratory: No cough, No sputum, No wheezing, No shortness of breath, No dyspnea on exertion, No dyspnea at rest, No hemoptysis Cardiac: No chest pain, No orthopnea, No PND, No edema, No claudication, No palpitations Abdomen: No pain, No nausea, No vomiting, No diarrhea, No constipation Musculoskeletal: No joint pain, No muscle pain, No swelling, No calf pain Male : No dysuria, No urinary frequency, No incontinence, No nocturia more than once/night, No slowing stream, No hematuria Neurologic: No memory loss, No paralysis, No weakness, No numbness/tingling, No vertigo, No balance problems Psychiatric: No depression symptoms, No anhedonism, No anxiety, No insomnia, No substance abuse Heme: No abnormal bleeding/bruising, No clotting problems, No swollen lymph nodes, No night sweats Endo: No fatigue, No excessive thirst, No excessive urination Skin: No rash, No itch, No new/changing skin lesions, No color change, No bleeding Objective Vital Signs Date Time Temp Pulse Resp B/P (MAP) Pulse Ox O2 Delivery O2 Flow Rate FiO2 08/15/16 11:55 36.6 82 18 107/69 (82) 98 Room Air 08/15/16 08:00 Room Air 08/15/16 07:48 36.6 82 16 163/85 (111) 95 Room Air 08/15/16 04:00 Room Air 08/15/16 03:59 36.6 81 18 163/87 (112) 96 Room Air 08/15/16 00:00 Room Air 08/14/16 23:47 36.5 77 15 160/80 (106) 96 Room Air 08/14/16 20:00 Room Air 08/14/16 19:54 36.8 79 18 133/78 (96) 96 Room Air 08/14/16 16:00 Room Air 08/14/16 15:28 36.8 76 20 138/79 (98) 95 Room Air Physical Exam General Appearance: WD/WN, no apparent distress, + thin Eyes: normal inspection, PERRL, EOMI, sclerae normal ENT: normal ENT inspection, hearing grossly normal, pharynx normal Neck: supple, no adenopathy, thyroid normal, no JVD, no carotid bruits, trachea midline Respiratory/Chest: chest non-tender, lungs clear, normal breath sounds, no respiratory distress, no accessory muscle use Cardiovascular: regular rate, rhythm, no edema, no gallop, no JVD, no murmur Abdomen: normal bowel sounds, non tender, soft, no organomegaly, no pulsatile mass Extremities: normal range of motion, non-tender, normal inspection, no pedal edema, no calf tenderness, normal capillary refill, pelvis stable Neurologic/Psychiatric: claims adjuster supervisor II-XII nml as tested, no motor/sensory deficits, alert, normal mood/affect, oriented x 3 Skin: normal color, warm/dry, no rash Lymphatic: no adenopathy Laboratory Results Last 24 Hours Test 08/14/16 15:15 08/14/16 19:48 08/14/16 23:25 08/15/16 07:39 Activated Partial Thromboplast Time 85.0 SECONDS 54.5 SECONDS Partial Thromboplastin Ratio 3.3 2.1 Troponin I < 0.015 ng/ml < 0.015 ng/ml White Blood Count 8.10 K/uL Red Blood Count 3.65 M/uL Hemoglobin 11.7 g/dL Hematocrit 34.4 % Mean Corpuscular Volume 94.2 fL Mean Corpuscular Hemoglobin 32.1 pg Mean Corpuscular Hemoglobin Concent 34.0 g/dl RDW Standard Deviation 50.1 fL RDW Coefficient of Variation 14.8 % Platelet Count 245 K/uL Mean Platelet Volume 9.8 fL Sodium Level 136 mmol/L Potassium Level 4.3 mmol/L Chloride Level 105 mmol/L Carbon Dioxide Level 25 mmol/L Anion Gap 6.0 mmol/L Blood Urea Nitrogen 13 mg/dl Creatinine 0.93 mg/dl Est Creatinine Clear Calc Drug Dose 49.9 ml/min Estimated GFR () 84.1 Estimated GFR (Non- 72.5 BUN/Creatinine Ratio 14.0 Random Glucose 97 mg/dl Calcium Level 8.2 mg/dl Assessment and Plan 89 y/o male admitted on 08/14/2016 with complaining of constant bilateral CP that started on the day of admission. 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 -- Imaging is significant for 23 mm nodular opacity which was a site of consolidation in the past and may be scarring - does have a H/O smoking - Has been on Heparin gtt initiated in ED - Has several occasion discussion with family about anticoagulation - Coumadin vs NOAC, including Pros and cons, family chose Coumadin - Has ordered anticoagulation counseling, Lovenox teaching kit, discontinue heparin, start Lovenox 1.5 mg/kg daily for the bridging of Coumadin -Bilateral lower extremity Doppler ultrasound has rule out DVT - No family history of PE or DVT, coagulopathy profile was ordered 23 mm nodular opacity : Discussed With coater operator , should have routine follow-up of the density seen in the right middle lobe. Per coater operator the opacity in x-rays have improved gradually compared with the pneumonia he had in 2016 and this density seems to be in that area. History of NSTEMI S/P RCA JHONATAN x 2: Follows with Dr. Busch - [facility] Echocardiogram was done, per report: * Normal biventricular systolic function. * Mild concentric left ventricular hypertrophy. * Class 2 LV diastolic dysfunction. * Trace aortic, mitral, and tricuspid regurgitation. Possible chronic Class 2 LV diastolic dysfunction, no sign of decompensation - ASA 81 mg daily - Atorvastatin 40 mg daily - Isosorbide mononitrite 60 mg daily - Metoprolol Succ 25 mg BID Laryngeal Polyp with Removal and Chronic Hoarseness: Follows with [facility] - STABLE PT/OT evaluations Lovenox bridging for Coumadin, and these need to have 5 days overlapping, and talk it PT/INR in 2-3 Pending anticoagulation may need insurance approval for cost Discussed with patient and family Answered all questions Continued [facility] stay due to: home environment unsafe for pt Discharge planning: home
[2016-08-15] MEDS: ENOXAPARIN 100 MG/1ML SYR SQ SCH (13:06)
[2016-08-15 16:03] VITALS: BP 123/69; PULSE 83; TEMP 36.8; O2SAT 95
[2016-08-15] MEDS: WARFARIN SOD 5 MG TAB PO SCH (16:52)
[2016-08-15] MEDS ORDERED: METOPROLOL SUCC 25MG EXT REL TAB PO STA (17:21)
[2016-08-15 20:11] VITALS: BP 120/67; PULSE 100; TEMP 36.8; O2SAT 96
[2016-08-15] MEDS: METOPROLOL SUCC 50MG EXT REL TAB PO SCH (20:24)
[2016-08-15 23:49] VITALS: BP 135/87; PULSE 92; TEMP 36.9; O2SAT 94
[2016-08-16] VITALS (8 sets, daily range): BP systolic 115–156; BP diastolic 66–81; PULSE 63–99; TEMP 36.5–36.9; O2SAT 93–99
[2016-08-16 07:07] LABS: HEMATOCRIT 35.8 % (42-52); MEAN CORPUSCULAR HGB CONC 34.1 g/dl (32-36); MEAN PLATELET VOLUME 9.9 fL (7.4-10.4); PLATELET COUNT 237 K/uL (130-400); RED BLOOD COUNT 3.81 M/uL (4.7-6.1); WHITE BLOOD COUNT 8.85 K/uL (4.8-10.8)
[2016-08-16] MEDS: METOPROLOL SUCC 50MG EXT REL TAB PO SCH ×2 (07:16→20:20)
[2016-08-16] MEDS: ATORVASTATIN 40 MG TAB PO SCH (07:16)
[2016-08-16] MEDS: ASPIRIN 81 MG ECTAB PO SCH (07:16)
[2016-08-16 07:17] LABS: INR 1.1 (0.9-1.1); PROTHROMBIN TIME (PATIENT) 11.7 SECONDS (9.0-12.0)
[2016-08-16] MEDS: LISINOPRIL 5 MG TAB PO SCH (07:17)
[2016-08-16] MEDS: CHOLECALCIFEROL 1000 INTER.UNIT TAB PO SCH (07:17)
[2016-08-16] MEDS: ISOSORBIDE MONONITRATE 30 MG TABCR PO SCH (07:17)
[2016-08-16] MEDS: ASCORBIC ACID 500 MG TAB PO SCH (07:17)
[2016-08-16] MEDS: MULTIVITAMIN TAB PO SCH (07:18)
[2016-08-16] MEDS: CALCIUM CARBONATE 500 MG CHEWABLE PO SCH (07:18)
[2016-08-16 07:35] LABS: BUN/CREATININE RATIO 15.4 (10-20); CREATININE 0.95 mg/dl (0.60-1.40); MAGNESIUM 2.2 mg/dl (1.8-2.4); POTASSIUM 4.2 mmol/L (3.5-5.1)
[2016-08-16] MEDS ORDERED: ENOXAPARIN 1.5 MG/KG SQ SCH (09:00)
--- NOTE | 2016-08-16 09:18 | Cardiology Consultation ---
Cardiology Consultation Date of Consultation: Aug 16, 2016. Requesting Physician: Dr. Regalado Attending Physician: Dr. Regalado Reason for Consultation: New Onset Atrial Fibrillation Pt evaluation today including: conversation w/ patient, physical exam, chart review, lab review, review of studies, review of inpatient medication list History of Present Illness Mr. Ovalle is a very pleasant 89-year-old white male with a history of CAD s/p NSTEMI and JHONATAN x 2 RCA, Hypertension, Dyslipidemia, chronic coarseness s/p laryngeal polypectomy, lumbar radiculopathy, BPH, and LV diastolic dysfunction who presented acutely to [facility] on 08/14/2016 with an atypical chest pain syndrome. His workup thus far reveals bilateral pulmonary emboli on CT angiogram. Additionally, he has negative cardiac enzymes and normal electrolyte levels. Nonetheless, he was noted to be in Atrial Fibrillation with a controlled ventricular response rate. Patient denies any prior history of atrial dysrhythmias. He has not had any symptoms associated with his current episode of atrial fibrillation. He has not experienced any palpitations, tachypalpitations, chest discomfort, or any exertional dyspnea. Patient denies any prior history of stroke or mini stroke. He has not experienced any angina pectoris since being admitted. Patient is currently being maintained on Lovenox, and he is now on Coumadin as well. Patient offers no other complaints. His pleuritic, atypical chest discomfort has improved. His cough has improved as well. He has not had any exertional angina pectoris or limiting dyspnea. He denies any orthopnea or PND. No syncope or near-syncope. Past Medical/Surgical History CAD s/p NSTEMI December 2014. s/p Xience 2.25 x 28 mm JHONATAN and 2.5 x 33 mm Drug Eluting Stents RCA 12/2014. Residual 50% to 70% mid LAD stenosis, residual mid LCX 40% to 50% stenosis. Hypertension. Dyslipidemia. BPH. Lumbar radiculopathy. Actinic keratosis. History of squamous cell carcinoma of the skin. Chronic coarseness s/p laryngeal polypectomy. Osteoarthritis. History of carpal tunnel syndrome. Family History Diabetes mellitus FH: cancer Hypertension Social History Smoking Status: Former Smoker History of Alcohol Use: Yes (wine 4-5 glasses per week ) Review of Systems Respiratory: No cough, No sputum, No wheezing, No shortness of breath, No dyspnea on exertion, No dyspnea at rest, No hemoptysis Cardiac: No chest pain, No orthopnea, No PND, No edema, No claudication, No palpitations Allergies Coded Allergies: No Known Allergies (Verified , 08/14/16) Medications Current Inpatient Medications Medications (Trade) Dose Ordered Sig/Cecilia Route Start Time Stop Time Status Last Admin Dose Admin Ioversol (Optiray 320) 100 ml UD PRN IV 08/14/16 07:45 08/18/16 07:44 Acetaminophen (Tylenol Tab) 650 mg Q4H PRN PO 08/14/16 09:30 09/13/16 09:29 Al Hydrox/Mg Hydrox/Simethicone (Maalox Max Susp) 15 ml Q4H PRN PO 08/14/16 09:30 09/13/16 09:29 Magnesium Hydroxide (Milk Of Magnesia Susp) 30 ml Q12H PRN PO 08/14/16 09:30 09/13/16 09:29 Ondansetron HCl (Zofran Inj) 4 mg Q6H PRN IV 08/14/16 09:30 09/13/16 09:29 Polyethylene (Miralax Powder Packet) 17 gm DAILY PRN PO 08/14/16 09:30 09/13/16 09:29 Ascorbic Acid (Vitamin C Tab) 500 mg DAILY PO 08/15/16 09:00 09/14/16 08:59 08/16/16 07:17 500 MG Aspirin (Ecotrin Tab) 81 mg DAILY PO 08/15/16 09:00 09/14/16 08:59 08/16/16 07:16 81 MG Atorvastatin Calcium (Lipitor Tab) 40 mg DAILY PO 08/15/16 09:00 09/14/16 08:59 08/16/16 07:16 40 MG Isosorbide Mononitrate (Imdur Ext Rel Tab) 60 mg QAM PO 08/15/16 09:00 09/14/16 08:59 08/16/16 07:17 60 MG Multivitamins (Multivitamin Tab) 1 tab DAILY PO 08/15/16 09:00 09/14/16 08:59 08/16/16 07:18 1 TAB Nitroglycerin (Nitrostat Tab) 0.4 mg UD PRN UT 08/14/16 09:30 09/13/16 09:29 Cholecalciferol (Vitamin D Tab) 1,000 inter.unit DAILY PO 08/16/16 09:00 09/15/16 08:59 08/16/16 07:17 1,000 INTER.UNIT Calcium Carbonate (Tums Chew Tab) 500 mg DAILY PO 08/16/16 09:00 09/15/16 08:59 08/16/16 07:18 500 MG Lisinopril (Zestril Tab) 5 mg QAM PO 08/16/16 09:00 09/15/16 08:59 08/16/16 07:17 5 MG Warfarin Sodium (Coumadin Tab) 5 mg DAILY@1600 PO 08/15/16 16:00 09/14/16 15:59 08/15/16 16:52 5 MG Enoxaparin Sodium (Lovenox Inj) 100 mg Q24H SQ 08/15/16 12:30 09/14/16 12:29 08/15/16 13:06 100 MG Metoprolol Succinate (Toprol Xl Tab) 50 mg BID PO 08/15/16 21:00 09/13/16 20:59 08/16/16 07:16 50 MG Physical Exam Vital Signs Past 12 Hours Date Time Temp Pulse Resp B/P (MAP) Pulse Ox O2 Delivery O2 Flow Rate FiO2 08/16/16 08:00 96 Room Air 08/16/16 07:03 36.8 91 17 156/81 (106) 96 Room Air 08/16/16 04:07 36.5 63 17 136/77 (96) 93 Room Air 08/16/16 04:00 Room Air 08/15/16 23:59 Room Air 08/15/16 23:49 36.9 92 17 135/87 (103) 94 Room Air General: Patient is in no acute distress. HEENT: Head is atraumatic, normocephalic. EOMs intact. Sclerae anicteric. Face is symmetric. No perioral cyanosis. Mucous membranes moist. Neck: No thyromegaly, adenopathy, or JVD. Jugular venous pressure is at the level of the clavicle sitting upright. Chest and Lungs: Clear to auscultation throughout all lung gerard, no wheezes, rales, or rhonchi. CVS: S1 and S2 are irregularly irregular at a rate of approximately 80 beats per minute. Grade 1/6 basal systolic murmur. No diastolic murmurs. No gallops or rubs. PMI is nondisplaced. No lifts, heaves, or thrills. No abdominal aortic or renal bruits. Abdominal Exam: Bowel sounds present. No masses, organomegaly, or tenderness. Extremities: No clubbing, cyanosis, or edema. Intact radial and posterior tibial pulses bilaterally. Neurologic Exam: Patient is awake, alert, and interactive. Answers questions appropriately. Speech is very raspy but otherwise clear. Normal movement in all 4 extremities. Gait pattern not assessed. Telemetry monitoring currently shows rate controlled atrial fibrillation. Echocardiogram 08/14/2016: Normal LV size and systolic function. LVEF 60% to 65% without regional wall motion abnormalities. Aortic valve sclerosis without stenosis, trace AI, trace MR, trace TR. Mild concentric LVH with grade 2 diastolic dysfunction. Normal RV size and systolic function. Data Laboratory Results: Last 24 Hours Test 08/15/16 18:05 08/16/16 06:50 08/16/16 07:39 Thyroid Stimulating Hormone (TSH) 5.360 uIu/ml White Blood Count 8.85 K/uL Red Blood Count 3.81 M/uL Hemoglobin 12.2 g/dL Hematocrit 35.8 % Mean Corpuscular Volume 94.0 fL Mean Corpuscular Hemoglobin 32.0 pg Mean Corpuscular Hemoglobin Concent 34.1 g/dl RDW Standard Deviation 49.8 fL RDW Coefficient of Variation 14.8 % Platelet Count 237 K/uL Mean Platelet Volume 9.9 fL Prothrombin Time 11.7 SECONDS Prothromb Time International Ratio 1.1 Sodium Level 136 mmol/L Potassium Level 4.2 mmol/L Chloride Level 104 mmol/L Carbon Dioxide Level 24 mmol/L Anion Gap 8.0 mmol/L Blood Urea Nitrogen 15 mg/dl Creatinine 0.95 mg/dl Est Creatinine Clear Calc Drug Dose 48.7 ml/min Estimated GFR () 81.9 Estimated GFR (Non- 70.7 BUN/Creatinine Ratio 15.4 Random Glucose 88 mg/dl Calcium Level 8.0 mg/dl Magnesium Level 2.2 mg/dl Free Thyroxine 0.96 ng/dl Free Triiodothyronine 2.07 pg/ml Total Triiodothyronine 0.54 ng/ml Imaging: EKG: Telemetry reviewed: Assessment & Plan 1. New onset Atrial Fibrillation with controlled V-rate -- Continue Lovenox for the time being. Continue Coumadin with a goal INR of 2.0-3.0. -- Continue Metoprolol Succinate 50 mg b.i.d.. -- Ongoing treatment of underlying pulmonary emboli. -- As patient is completely asymptomatic and his ventricular response rate is well controlled -- we will recommend ongoing rate control strategy with anticoagulation. If patient becomes symptomatic in the future, could consider an elective electrical cardioversion. -- I had a very long discussion today with the patient regarding what atrial fibrillation is, the natural history of atrial dysrhythmias, as well as treatment strategies. Patient verbalized understanding of this discussion. Neck 2. CAD s/p RCA JHONATAN x 2 -- Patient has not experienced any angina pectoris or anginal equivalent symptoms. Cardiac enzymes negative. -- Continue long-term beta-tulio, statin medication, long-acting nitrate, and aspirin. We will continue to follow this patient along while hospitalized, and following discharge.
[2016-08-16] MEDS: ENOXAPARIN 100 MG/1ML SYR SQ SCH (12:45)
--- NOTE | 2016-08-16 12:53 | Pulmonology Progress Note ---
Pulmonary Progress Note Date of Service Aug 16, 2016. Attending Dr Leanne Preciado The patient was seen with DEEP Durán with the patient's verbal consent. He is doing well today. He has no significant complaints at this time. He reports that his breathing has been doing well. He has not really had any increased shortness of breath at this time. If anything, he feels like his breathing is doing better. He is not having much cough or congestion. He has not had any blood in the mucus that he has coughed up. He has not had any wheezing or chest tightness or heaviness. He has not had any pleuritic chest pain. He has not had any other concerns. He has not had any chest pain or pressure. He has not had any palpitations. He has not had any GI complaints. He has not had any nausea or vomiting. He has not had any difficulty with his swallowing. He has not had any problems with indigestion or heartburn. His bowels have been moving well. He has not had any melena or hematochezia that he is aware of. He is voiding well and has not noticed any blood in the urine. He has not had any dysuria. He has not had any swelling in his extremities. His and daughter were present during the visit. They had several questions about the cause of the blood clot and the atrial fibrillation. I did answer the questions as best as possible with the current information available. I did discuss with his his sleeping patterns. She reports that he does snore and she has noticed in the past that he does have some pauses in his breathing when he sleeps. He has never had a sleep study. This has never been discussed with him in the past. He has not been out of bed moving around yet. Objective He is a WN, WD 89 y/o male in [facility]. He is alert and oriented x 3. No respiratory distress. He is able to complete sentences without difficulty. Mood is good. Affect is good. HEENT: PERRLA, EOMI. Normocephalic, atraumatic. Babbitt, moist, gingival and buccal mucosa. Neck: Supple, no mass, adenopathy, or bruit. Nontender to palpation. Chest: Quiet and clear. No wheeze, rales, or rhonchi noted. He has good air movement throughout. CV:. Irregularly irregular. No m,g, r. ABD: +BS in all 4 quadrants. Soft, nontender to palpation. No guarding, rigidity or organomegaly. EXT: No erythema or edema. Non tender to palpation. No cyanosis or clubbing. . Assessment & Plan Impressions: #1 acute pulmonary embolism #2 right middle lobe opacity-most likely benign but needs follow-up Comments and recommendations: The patient is doing well at this time. He is currently receiving lovenox and coumadin. At this time, I did discuss with the family the possibility of sleep apnea and the patient will need to be set up for a sleep study and seemed to be agreeable to this as an outpatient. He will need to have PT/OT prior to discharge as he has not been out of bed since he has been here and would be a little bit of a fall risk. He was recommended to followup with pulmonary due to the RML irregularity found on the chest imaging. We will continue to follow the patient through hospitalization. Data Medications: Current Inpatient Medications Medications (Trade) Dose Ordered Sig/Cecilia Route Start Time Stop Time Status Last Admin Dose Admin Ioversol (Optiray 320) 100 ml UD PRN IV 08/14/16 07:45 08/18/16 07:44 Acetaminophen (Tylenol Tab) 650 mg Q4H PRN PO 08/14/16 09:30 09/13/16 09:29 Al Hydrox/Mg Hydrox/Simethicone (Maalox Max Susp) 15 ml Q4H PRN PO 08/14/16 09:30 09/13/16 09:29 Magnesium Hydroxide (Milk Of Magnesia Susp) 30 ml Q12H PRN PO 08/14/16 09:30 09/13/16 09:29 Ondansetron HCl (Zofran Inj) 4 mg Q6H PRN IV 08/14/16 09:30 09/13/16 09:29 Polyethylene (Miralax Powder Packet) 17 gm DAILY PRN PO 08/14/16 09:30 09/13/16 09:29 Ascorbic Acid (Vitamin C Tab) 500 mg DAILY PO 08/15/16 09:00 09/14/16 08:59 08/16/16 07:17 500 MG Aspirin (Ecotrin Tab) 81 mg DAILY PO 08/15/16 09:00 09/14/16 08:59 08/16/16 07:16 81 MG Atorvastatin Calcium (Lipitor Tab) 40 mg DAILY PO 08/15/16 09:00 09/14/16 08:59 08/16/16 07:16 40 MG Isosorbide Mononitrate (Imdur Ext Rel Tab) 60 mg QAM PO 08/15/16 09:00 09/14/16 08:59 08/16/16 07:17 60 MG Multivitamins (Multivitamin Tab) 1 tab DAILY PO 08/15/16 09:00 09/14/16 08:59 08/16/16 07:18 1 TAB Nitroglycerin (Nitrostat Tab) 0.4 mg UD PRN UT 08/14/16 09:30 09/13/16 09:29 Cholecalciferol (Vitamin D Tab) 1,000 inter.unit DAILY PO 08/16/16 09:00 09/15/16 08:59 08/16/16 07:17 1,000 INTER.UNIT Calcium Carbonate (Tums Chew Tab) 500 mg DAILY PO 08/16/16 09:00 09/15/16 08:59 08/16/16 07:18 500 MG Lisinopril (Zestril Tab) 5 mg QAM PO 08/16/16 09:00 09/15/16 08:59 08/16/16 07:17 5 MG Warfarin Sodium (Coumadin Tab) 5 mg DAILY@1600 PO 08/15/16 16:00 09/14/16 15:59 08/15/16 16:52 5 MG Enoxaparin Sodium (Lovenox Inj) 100 mg Q24H SQ 08/15/16 12:30 09/14/16 12:29 08/15/16 13:06 100 MG Metoprolol Succinate (Toprol Xl Tab) 50 mg BID PO 08/15/16 21:00 09/13/16 20:59 08/16/16 07:16 50 MG Vital Signs: Date Time Temp Pulse Resp B/P (MAP) Pulse Ox O2 Delivery O2 Flow Rate FiO2 08/16/16 12:00 96 Room Air 08/16/16 11:46 36.8 86 18 120/66 (84) 95 Room Air 08/16/16 08:00 96 Room Air 08/16/16 07:03 36.8 91 17 156/81 (106) 96 Room Air 08/16/16 04:07 36.5 63 17 136/77 (96) 93 Room Air 08/16/16 04:00 Room Air 08/15/16 23:59 Room Air 08/15/16 23:49 36.9 92 17 135/87 (103) 94 Room Air 08/15/16 20:11 36.8 100 18 120/67 (84) 96 Room Air 08/15/16 20:00 Room Air 08/15/16 16:03 36.8 83 20 123/69 (87) 95 Room Air 08/15/16 16:00 Room Air Laboratory Results: Last 24 Hours Test 08/15/16 18:05 08/16/16 06:50 08/16/16 07:39 Thyroid Stimulating Hormone (TSH) 5.360 uIu/ml White Blood Count 8.85 K/uL Red Blood Count 3.81 M/uL Hemoglobin 12.2 g/dL Hematocrit 35.8 % Mean Corpuscular Volume 94.0 fL Mean Corpuscular Hemoglobin 32.0 pg Mean Corpuscular Hemoglobin Concent 34.1 g/dl RDW Standard Deviation 49.8 fL RDW Coefficient of Variation 14.8 % Platelet Count 237 K/uL Mean Platelet Volume 9.9 fL Prothrombin Time 11.7 SECONDS Prothromb Time International Ratio 1.1 Sodium Level 136 mmol/L Potassium Level 4.2 mmol/L Chloride Level 104 mmol/L Carbon Dioxide Level 24 mmol/L Anion Gap 8.0 mmol/L Blood Urea Nitrogen 15 mg/dl Creatinine 0.95 mg/dl Est Creatinine Clear Calc Drug Dose 48.7 ml/min Estimated GFR () 81.9 Estimated GFR (Non- 70.7 BUN/Creatinine Ratio 15.4 Random Glucose 88 mg/dl Calcium Level 8.0 mg/dl Magnesium Level 2.2 mg/dl Free Thyroxine 0.96 ng/dl Free Triiodothyronine 2.07 pg/ml Total Triiodothyronine 0.54 ng/ml
--- NOTE | 2016-08-16 13:29 | Hospitalist Progress Note ---
Hospitalist Progress Note Date of Service Aug 16, 2016. Subjective Pt evaluation today including: conversation w/ patient, physical exam, chart review, lab review, review of studies, review of inpatient medication list Patient seen and evaluated. Converted to A Fib with rate control yesterday at 1528 and has remained in this rhythm. He denies palpitations or chest pain. Expressed confusion in regards to heart rhythm and blood clots. Tried to explain both processes to him but he still seemed confused. Will obtain written information to give to patient and family to better understand A Fib and PEs. Labs obtained show elevated TSH and low T3. Verbalizes no other complaints. Constitutional: No fever, No chills Respiratory: No shortness of breath Cardiovascular: No chest pain, No palpitations Abdomen: No pain, No nausea, No vomiting Musculoskeletal: No calf pain Male : No dysuria Heme: No abnormal bleeding/bruising Medications Current Inpatient Medications Medications (Trade) Dose Ordered Sig/Cecilia Route Start Time Stop Time Status Last Admin Dose Admin Ioversol (Optiray 320) 100 ml UD PRN IV 08/14/16 07:45 08/18/16 07:44 Acetaminophen (Tylenol Tab) 650 mg Q4H PRN PO 08/14/16 09:30 09/13/16 09:29 Al Hydrox/Mg Hydrox/Simethicone (Maalox Max Susp) 15 ml Q4H PRN PO 08/14/16 09:30 09/13/16 09:29 Magnesium Hydroxide (Milk Of Magnesia Susp) 30 ml Q12H PRN PO 08/14/16 09:30 09/13/16 09:29 Ondansetron HCl (Zofran Inj) 4 mg Q6H PRN IV 08/14/16 09:30 09/13/16 09:29 Polyethylene (Miralax Powder Packet) 17 gm DAILY PRN PO 08/14/16 09:30 09/13/16 09:29 Ascorbic Acid (Vitamin C Tab) 500 mg DAILY PO 08/15/16 09:00 09/14/16 08:59 08/16/16 07:17 500 MG Aspirin (Ecotrin Tab) 81 mg DAILY PO 08/15/16 09:00 09/14/16 08:59 08/16/16 07:16 81 MG Atorvastatin Calcium (Lipitor Tab) 40 mg DAILY PO 08/15/16 09:00 09/14/16 08:59 08/16/16 07:16 40 MG Isosorbide Mononitrate (Imdur Ext Rel Tab) 60 mg QAM PO 08/15/16 09:00 09/14/16 08:59 08/16/16 07:17 60 MG Multivitamins (Multivitamin Tab) 1 tab DAILY PO 08/15/16 09:00 09/14/16 08:59 08/16/16 07:18 1 TAB Nitroglycerin (Nitrostat Tab) 0.4 mg UD PRN UT 08/14/16 09:30 09/13/16 09:29 Cholecalciferol (Vitamin D Tab) 1,000 inter.unit DAILY PO 08/16/16 09:00 09/15/16 08:59 08/16/16 07:17 1,000 INTER.UNIT Calcium Carbonate (Tums Chew Tab) 500 mg DAILY PO 08/16/16 09:00 09/15/16 08:59 08/16/16 07:18 500 MG Lisinopril (Zestril Tab) 5 mg QAM PO 08/16/16 09:00 09/15/16 08:59 08/16/16 07:17 5 MG Warfarin Sodium (Coumadin Tab) 5 mg DAILY@1600 PO 08/15/16 16:00 09/14/16 15:59 08/15/16 16:52 5 MG Enoxaparin Sodium (Lovenox Inj) 100 mg Q24H SQ 08/15/16 12:30 09/14/16 12:29 08/16/16 12:45 100 MG Metoprolol Succinate (Toprol Xl Tab) 50 mg BID PO 08/15/16 21:00 09/13/16 20:59 08/16/16 07:16 50 MG Objective Vital Signs Date Time Temp Pulse Resp B/P (MAP) Pulse Ox O2 Delivery O2 Flow Rate FiO2 08/16/16 12:00 96 Room Air 08/16/16 11:46 36.8 86 18 120/66 (84) 95 Room Air 08/16/16 08:00 96 Room Air 08/16/16 07:03 36.8 91 17 156/81 (106) 96 Room Air 08/16/16 04:07 36.5 63 17 136/77 (96) 93 Room Air 08/16/16 04:00 Room Air 08/15/16 23:59 Room Air 08/15/16 23:49 36.9 92 17 135/87 (103) 94 Room Air 08/15/16 20:11 36.8 100 18 120/67 (84) 96 Room Air 08/15/16 20:00 Room Air 08/15/16 16:03 36.8 83 20 123/69 (87) 95 Room Air 08/15/16 16:00 Room Air Physical Exam General Appearance: WD/WN, no apparent distress Eyes: sclerae normal ENT: hearing grossly normal Neck: supple, no JVD, trachea midline Respiratory/Chest: lungs clear, normal breath sounds, no respiratory distress, no accessory muscle use Cardiovascular: no gallop, no murmur, + irregularly irregular Abdomen: normal bowel sounds, non tender, soft Extremities: no pedal edema, no calf tenderness Neurologic/Psychiatric: alert, oriented x 3 Skin: normal color, warm/dry Laboratory Results Last 24 Hours Test 08/15/16 18:05 08/16/16 06:50 08/16/16 07:39 Thyroid Stimulating Hormone (TSH) 5.360 uIu/ml White Blood Count 8.85 K/uL Red Blood Count 3.81 M/uL Hemoglobin 12.2 g/dL Hematocrit 35.8 % Mean Corpuscular Volume 94.0 fL Mean Corpuscular Hemoglobin 32.0 pg Mean Corpuscular Hemoglobin Concent 34.1 g/dl RDW Standard Deviation 49.8 fL RDW Coefficient of Variation 14.8 % Platelet Count 237 K/uL Mean Platelet Volume 9.9 fL Prothrombin Time 11.7 SECONDS Prothromb Time International Ratio 1.1 Sodium Level 136 mmol/L Potassium Level 4.2 mmol/L Chloride Level 104 mmol/L Carbon Dioxide Level 24 mmol/L Anion Gap 8.0 mmol/L Blood Urea Nitrogen 15 mg/dl Creatinine 0.95 mg/dl Est Creatinine Clear Calc Drug Dose 48.7 ml/min Estimated GFR () 81.9 Estimated GFR (Non- 70.7 BUN/Creatinine Ratio 15.4 Random Glucose 88 mg/dl Calcium Level 8.0 mg/dl Magnesium Level 2.2 mg/dl Free Thyroxine 0.96 ng/dl Free Triiodothyronine 2.07 pg/ml Total Triiodothyronine 0.54 ng/ml Assessment and Plan Mr. 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 CTA confirmed bilateral PEs Bilateral Pulmonary Embolism: STABLE - Unknown precipitating factor - unprovoked? hypercoag studies pending - Bridge with Lovenox 100 mg SC daily x 5 days with Coumadin until INR therapeutic - Echocardiogram (possible syncopal episode [employer] - normal systolic function with class II LV diastolic dysfunction without signs of decompensation - Pulmonology following - will monitor CT findings as outpatient and plan for sleep study New Onset Atrial Fibrillation with Rate Control: - He is asymptomatic - Cardiology following - recommending increased Metoprolol to 50 mg BID and anticoagulation -- Plan to follow as outpatient for continued monitoring and possible cardioversion if necessary NSTEMI S/P RCA JHONATAN x 2: Follows with Dr. Busch - STABLE - ASA 81 mg daily - Atorvastatin 40 mg daily - Imdur 60 mg daily - Increased to Metoprolol Succ 50 mg BID Laryngeal Polyp with Removal and Chronic Hoarseness: Follows with [facility] - STABLE DVT Prophylaxis: Lovenox/Coumadin Code Status: FULL RESUSCITATION Disposition: - From home and will get PT/OT evaluations - Awaiting call back from pharmacy for anticoagulation cost in regards to bridge therapy - Await PT/OT - likely discharge tomorrow
[2016-08-16] MEDS: WARFARIN SOD 5 MG TAB PO SCH (15:53)
[2016-08-17] VITALS (9 sets, daily range): BP systolic 101–147; BP diastolic 63–82; PULSE 75–87; TEMP 36.5–37; O2SAT 95–98
[2016-08-17 07:28] LABS: HEMATOCRIT 35.7 % (42-52); MEAN CELL VOLUME 94.2 fL (80-100); MEAN CORPUSCULAR HEMOGLOBIN 32.2 pg (25-34); MEAN CORPUSCULAR HGB CONC 34.2 g/dl (32-36); MEAN PLATELET VOLUME 10.1 fL (7.4-10.4); PLATELET COUNT 206 K/uL (130-400); RED BLOOD COUNT 3.79 M/uL (4.7-6.1); WHITE BLOOD COUNT 8.14 K/uL (4.8-10.8)
[2016-08-17] MEDS: ISOSORBIDE MONONITRATE 30 MG TABCR PO SCH (07:32)
[2016-08-17] MEDS: ATORVASTATIN 40 MG TAB PO SCH (07:32)
[2016-08-17] MEDS: ASPIRIN 81 MG ECTAB PO SCH (07:32)
[2016-08-17] MEDS: CALCIUM CARBONATE 500 MG CHEWABLE PO SCH (07:33)
[2016-08-17] MEDS: MULTIVITAMIN TAB PO SCH (07:33)
[2016-08-17] MEDS: METOPROLOL SUCC 50MG EXT REL TAB PO SCH (07:33)
[2016-08-17] MEDS: LISINOPRIL 5 MG TAB PO SCH (07:34)
[2016-08-17] MEDS: CHOLECALCIFEROL 1000 INTER.UNIT TAB PO SCH (07:34)
[2016-08-17] MEDS: ASCORBIC ACID 500 MG TAB PO SCH (07:34)
[2016-08-17 07:37] LABS: INR 1.1 (0.9-1.1); PROTHROMBIN TIME (PATIENT) 12.2 SECONDS (9.0-12.0)
[2016-08-17 08:01] LABS: CALCIUM 7.7 mg/dl (8.5-10.1); CREATININE 0.9 mg/dl (0.60-1.40); POTASSIUM 4.3 mmol/L (3.5-5.1)
[2016-08-17] MEDS ORDERED: CMD5 PO (10:31)
[2016-08-17] MEDS ORDERED: LVNIS100 SQ (10:31)
[2016-08-17] MEDS ORDERED: TPRSR50 PO (10:35)
[2016-08-17] MEDS ORDERED: LSN5 PO (10:35)
--- NOTE | 2016-08-17 10:48 | Discharge Instructions ---
Discharge Instructions Date of Service Aug 17, 2016. Admission Reason for Admission: Bilateral Pulmonary Embolism Discharge Discharge Diagnosis / Problem: (1) Bilateral pulmonary embolism VTE Date & Time Date of VTE Diagnosis: Aug 14, 2016 Time of VTE Diagnosis: 07:53 Discharge Goals Goal(s): Decrease discomfort, Improve function, Increase independence Activity Recommendations Activity Limitations: resume your previous activity . Instructions / Follow-Up Instructions / Follow-Up Bilateral Pulmonary Embolism: Blood clots in the lungs - At this time it is not clear what could have caused these clots to go to the lungs. The legs were scanned and no signs of blood clots were seen. -- There is blood work pending to see if you have a reason to make blood clots more easily and these will be sent to your family doctor - You were started on a blood thinner called Coumadin or Warfarin. This blood thinner needs to be at a certain level and you will need to have your blood levels checks -- You need to have an INR level between 2 and 3. Right now you are at 1.1 - You will need to use Lovenox (blood thinner) that is injected into the abdomen in the fat tissue. You will do this for 5 days around noon. -- Take Coumadin at around 4:00 PM and try to take at the same time everyday. -- You will need to have your levels checked in about 2 days and may need the dose adjusted Lung Findings: - Your images here show some evidence related to when you had pneumonia and is improving. The lung doctors will like to continue to monitor this as well as do a sleep study to evaluate for sleep apnea. - There number will be provided and an appointment can be set up in 1-2 weeks Atrial Fibrillation: - You went into this rhythm while you were here and this is likely because of the blood clots. You are currently in a normal sinus rhythm (meaning a normal rhythm that most people have). - We did increase your Metoprolol to help control this rhythm and would recommend this dose unless your family doctor needs to make changes - Recommend seeing your heart doctor in 1-2 weeks to have this monitored Follow-Up: - An appointment was set with your family doctor for Monday August 22, 2016 at 3: 00 PM Medication Instructions: * Warfarin is a medicine prescribed to prevent blood clots * Warfarin will thin your blood and help prevent new clots * Take your medications exactly as directed * Never skip a dose. Never take a double dose. If you miss a dose, take it as soon as you remember * It is important for your doctor to monitor your prothrombin time (PT). This is a lab test * Keep your appointment for lab tests Risk of Adverse Drug Reactions and Interactions: * Warfarin increases your risk of bleeding * The food you eat and other medications you take can affect how Warfarin works in your body * Ask your doctor about daily aspirin therapy * It is very important to talk with your doctor about all of the other medicines , antibiotics, vitamins or herbal products that you are taking * All of your medication must be approved by your doctor, including new medicines, as well as medicines you have taken before you started taking Warfarin Diet: * In order for Warfarin to work properly, it is important to keep your intake of Vitamin K as consistent as possible * You should avoid any sudden change in Vitamin K intake * Report any significant changes in your diet or weight to your doctor Call your Primary Care doctor if you experience any of the following: * Swelling or Pain in your leg * Sudden, continuous pain deep in a muscle * Pain that worsens when you are active or when you stand still for a long time * Chest Pain * Sudden Shortness of Breath * Rapid or pounding heart beat * Fainting * Dizziness * Cough with blood or bloody sputum * Sweating more than normal * Bruises * Heavy or uncontrolled bleeding * Blood in your urine, stool or vomit * Black or tarry stools Caring for Your Self at Home: * Avoid sitting, standing or lying down for long periods without moving your legs and feet * When traveling by car, stop to get out and move around at least once every 3 hours * On long airplane, train or bus rides, get up and move around when possible * If you can't get up, wiggle your toes and tighten your calves to keep your blood moving Follow Up: It is important for you to keep your follow up appointments with your medical provider. Current Hospital Diet Patient's current hospital diet: AHA Diet (Heart Healthy), Low Sodium Diet (2gm Na) Discharge Diet Recommended Diet: AHA Diet (Heart Healthy), Low Sodium Diet (2gm Na) Pending Studies Studies pending at discharge: yes List of pending studies: Clotting labs - multiple ones to evaluate clotting risk - will be sent to Dr. Chicas Laboratory Results Lipid Panel Test 07/11/16 11:16 Range/Units Triglycerides Level 99 0-150 mg/dl Cholesterol Level 144 0-200 mg/dl HDL Cholesterol 70 mg/dl Cholesterol/HDL Ratio 2.1 LDL Cholesterol, Calculated 54 mg/dl Medical Emergencies . Who to Call and When: Medical Emergencies: If at any time you feel your situation is an emergency, please call 911 immediately. . Non-Emergent Contact Non-Emergency issues call your: Primary Care Provider Call Non-Emergent contact if: you have a fever, your pain is concerning you, you have any medication questions . . "Provider Documentation" section prepared by Mireya Varela. . VTE Core Measure Inpt VTE Proph given/why not?: Enoxaparin (Lovenox)SQ, Warfarin (Coumadin) Reason no anticoag overlap I/P: Treatment provided - N/A Reason no anticoag overlap @DC: Treatment provided - N/A
[2016-08-17] MEDS: ENOXAPARIN 100 MG/1ML SYR SQ SCH (12:40)
--- NOTE | 2016-08-17 17:18 | Discharge Summary ---
Discharge Summary Date of Service Aug 17, 2016. (Mireya Varela PA-C) Discharge Summary Admission Date: Aug 14, 2016 at 09:30 Discharge Date: Aug 17, 2016 Discharge Disposition: Home with services Principal Diagnosis: Bilateral Pulmonary Embolism and Atrial Fibrillation Problems/Secondary Diagnoses: 1. NSTEMI S/P RCA JHONATAN x 2 2. HTN 3. 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 Lumbar OA Immunizations: History of Tetanus Vaccine?: Unknown History of Pneumococcal: No History of Hepatitis B Vaccine: No Procedures: CT ANGIOGRAM OF THE CHEST FINDINGS: There is a 33 mm left renal cyst. Hilar lymph nodes are the upper limits of normal in size. There are no pathologically enlarged mediastinal or axillary lymph nodes. There was no evidence of thoracic aortic dilatation. There are small bilateral bony artery filling defects consistent with pulmonary emboli. There are small bilateral pleural effusions There are bilateral dependent airspace opacities. There is bilateral lower lobe bronchial wall thickening with areas of mucous plugging. There is a 23 mm right middle lobe nodular opacity. This is in an area of prior parenchymal consolidation could represent postinflammatory scarring. Continued follow-up is recommended. There is a partially calcified 5 mm right upper lobe pulmonary nodule. IMPRESSION: 1. Small bilateral pulmonary artery filling defects, indicative of bilateral pulmonary emboli 2. Small bilateral pleural effusions with dependent airspace opacities 3. 23 mm right middle lobe nodular opacity. This is in an area of prior parenchymal consolidation and could represent postinflammatory scarring. Continued follow-up is recommended BILATERAL LOWER EXTREMITY VENOUS DOPPLER FINDINGS: There is normal compressibility, flow, and augmentation within the bilateral lower extremity deep venous systems. IMPRESSION: No DVT within the right or left lower extremity. Consultations: 1. Cardiology 2. Pulmonology 3. PT/OT (Mireya Varela PA-C) Medication Reconciliation New Medications: Enoxaparin (Enoxaparin Sodium) 100 Mg/Ml Inj 100 MG SQ Q24H for 5 Days, #5 SYR Inject into abdomen (in the fat) at noon each day Lisinopril (Lisinopril) 5 Mg Tab 5 MG PO QAM for 14 Days, #14 TAB Metoprolol Succinate (Metoprolol Succinate ER) 50 Mg Tabcr 50 MG PO BID for 14 Days, #28 TAB Warfarin Sod (Coumadin) 5 Mg Tab 5 MG PO DAILY@1600 for 14 Days, #14 TAB Continued Medications: [place] (Santa Fe) 250 Mg Tab 250 MG PO DAILY Ascorbic Acid (Vitamin C) 500 Mg Tab 500 MG PO DAILY Aspirin (Aspirin 81) 81 Mg Tab 81 MG PO DAILY Atorvastatin (Lipitor) 80 Mg Tab 40 MG PO DAILY, 5 Refills 1/2 tablet dose Calcium (Calcium) 500 Mg Tab 500 MG PO DAILY Cholecalciferol (Vitamin D3) 1,000 Unit Tab 1000 UNITS PO DAILY, 3 Refills Isosorbide Mononitrate Ext Rel (Imdur Ext Rel) 30 Mg Ertab 60 MG PO QAM, TAB Multivitamin (Multivitamin) Tab 1 TAB PO DAILY, TAB Nitroglycerin (Nitrostat) 0.4 Mg Tab 0.4 MG UT UD PRN for Chest Pain Discontinued Medications: Metoprolol Tartrate (Lopressor) (Lopressor) 25 Mg Tab 25 MG PO BID, 1 Refill Discharge Exam Review of Systems: Constitutional: No fever, No chills ENT: No nasal symptoms, No sore throat, No trouble swallowing Respiratory: No cough, No dyspnea on exertion, No dyspnea at rest Cardiovascular: No chest pain, No orthopnea, No palpitations Abdomen: No pain, No nausea, No vomiting, No diarrhea, No constipation Musculoskeletal: No swelling, No calf pain Genitourinary - Male: No dysuria Neurologic: + memory loss (chronic) Hematologic / Lymphatic: No abnormal bleeding/bruising Physical Exam: General Appearance: WD/WN, no apparent distress, + thin Eyes: sclerae normal ENT: hearing grossly normal Neck: supple, no JVD, trachea midline Respiratory/Chest: lungs clear, normal breath sounds, no respiratory distress, no accessory muscle use Cardiovascular: regular rate, rhythm, no gallop, no murmur Abdomen / GI: normal bowel sounds, non tender, soft Extremities: no pedal edema Neurologic/Psychiatric: alert, oriented x 3 Skin: normal color, warm/dry (Mireya Varela, MECCAC) Hospital Course ADMISSION: Mr. Ovalle is an 89 y/o male with PMHx of NSTEMI S/P RCA JHONATAN x 2, HTN , Laryngeal Polyps with Removal and Chronic Voice Hoarseness, and Lumbar OA who presents to the ED complaining of constant bilateral CP that started this AM. He reports that he has not felt his normal self x 2 weeks. Reporting generalized fatigue and weakness. Noted to have a 100 degree fever during this course. Has also dealt with a nonproductive dry cough x 2 weeks and was seen in [facility] and prescribed a pill to help with the cough, they are unsure of its name but it was only to suppress cough. He reports some relief with this. Yesterday, per family he may have blacked out while sitting outside. This AM, he awoke to a dull CP that was bilateral and the lower levels of the chest. Pain is worsened with inspiration. He denies history of previous DVT/PE, recent trauma, or recent immobilization. Does not know of a significant FMHx of blood clotting disorders or multiple family members with H/O DVT/PE. He is a former smoke quitting nearly 60-70 years ago with an occasional pipe but again decades ago. Intermittently gets edema of the ankles which slightly worsened this week. He denies calf tenderness or erythema of the lower legs. He denies chills, SOB, N/V, abdominal pain, dysuria, constipation/diarrhea. In the ED, he is hemodynamically stable with adequate oxygenation on RA. CTA significant for small bilateral PEs and a 23 mm RML nodular opacity which was the site of a previous consolidation that may be scarring. He was initiated on a heparin gtt and will be admitted to telemetry. HOSPITAL COURSE: Mr. Ovalle was admitted for bilateral pulmonary embolisms that currently appear unprovoked. Venous dopplers performed with no evidence of lower extremity DVT. Hypercoagulable workup initiated and pending due to reference labs. He has remained hemodynamically stable and oxygenating on RA. He went into A Fib with rare episodes of rates in the low 100s but largely remained rate controlled. His Metoprolol Succ was increased to 50 mg BID. He converted to NSR on 08/17 at approx. 0100. He was initiated on Lovenox/Coumadin bridge. INR is 1.1 after two days of Warfarin 5 mg. Plan for continue Lovenox bridge until Coumadin therapeutic. He was setup up with [facility] to perform INR tomorrow and further management per family provider vs warfarin clinic. Due to continued hypertension even with increase in Metoprolol, Lisinopril 5 mg daily was added. All other home medications continued as prescribed. Of note, patient had a mildly elevated TSH with normal T4 and mildly low T3. Recommend repeat labs to and consideration for implementation of Synthroid but this was deferred at this time as may be normal range given patient age. Pulmonology recommending follow-up to monitor scarring on imaging from previous pneumonia and sleep study. Cardiology recommended follow-up for atrial fibrillation monitoring. A PCP appointment was established for August 22. Patient is optimal for D/C home with family and outpatient follow-up. Of note, had multiple discussions with family through hospitalists and specialists on board. Provided written discharge instructions and patient education paperwork to help facilitate learning. Had nursing staff show Lovenox injections and teaching kit provided. Patient family members were seen recording instructions and discussions on cellphone. Total Time Spent: Greater than 30 minutes This includes examination of the patient, discharge planning, medication reconciliation, and communication with other providers. (Mireya Varela, SHANKAR) Discharge Instructions Please refer to the electronic Patient Visit Report (Discharge Instructions) for additional information. (Mireya Varela PA-C) Additional Copies To Raheem Chicas M.D. Reviewed: Pt Seen/Exam by Me (Gisela Newton, DO) History Pt is doing well. Feeling improved. Tolerating PO. Still weak, but improving. No chest pain, SOB. Agree with HPI/ROS as noted. (Gisela Newton, DO) General Appearance: WD/WN, no apparent distress Respiratory: normal breath sounds, no respiratory distress Cardiovascular: normal peripheral pulses, regular rate, rhythm Gastrointestinal: non tender, soft Extremities: non-tender, no pedal edema Neurologic/Psychiatric: alert, oriented x 3 Skin Characteristics: normal color, warm/dry (Gisela Newton, DO) Assessment/Plan Agree with plan as outlined above PT/INR with HH, check tomorrow Afib improved, f/u cards as outpt ? pulm nodule, f/u with pulm as outpt ?ROSALINE, will need sleep study (Gisela Newton, DO)
--- NOTE | 2016-08-17 18:35 | Pulmonology Progress Note ---
Pulmonary Progress Note Date of Service Aug 17, 2016. Attending Dr. Perdomo Subjective Patient is evaluated today with Derrick Frank, physician assistant professor of economics student with the patient's verbal consent. Patient is doing well today. He is being discharged today. He is being discharged on Coumadin and Lovenox. At this time he has no complaints. He is not having any difficulty with his breathing. No cough. No wheeze. No increased shortness of breath. No pleuritic chest pain. He denies any chest heaviness or tightness. He has not had any palpitations. He has not had any GI symptoms. No nausea or vomiting. No indigestion or heartburn. No difficulty with his bowels. No difficulty voiding. No swelling in his extremities. His and daughter were present during the examination. Questions were answered. Objective He is a WN, WD 89 y/o male in NAD. He is alert and oriented x 3. No respiratory distress. He is able to complete sentences without difficulty. Mood is good. Affect is good. Vital signs are stable on listed below. HEENT: PERRLA, EOMI. Normocephalic, atraumatic. [place], moist, gingival and buccal mucosa. Neck: Supple, no mass, adenopathy, or bruit. Nontender to palpation. Chest: Quiet and clear. No wheeze, rales, or rhonchi noted. He has good air movement throughout. CV:. Irregularly irregular. No m,g, r. ABD: +BS in all 4 quadrants. Soft, nontender to palpation. No guarding, rigidity or organomegaly. EXT: No erythema or edema. Non tender to palpation. No cyanosis or clubbing. . Assessment & Plan Impressions: #1 acute pulmonary embolism #2 right middle lobe opacity-most likely benign but needs follow-up Comments and recommendations: The patient is doing well at this time. He is currently receiving lovenox and coumadin. At this time, I did discuss and reiterate with the family the possibility of sleep apnea and the patient will need to be set up for a sleep study and seemed to be agreeable to this as an outpatient. He was recommended to followup with pulmonary due to the RML irregularity found on the chest imaging. . Data I & O: 24-Hour Column 08/18/16 08:00 Intake Total 275 ml Output Total 400 ml Balance -125 ml Vital Signs: Date Time Temp Pulse Resp B/P (MAP) Pulse Ox O2 Delivery O2 Flow Rate FiO2 08/17/16 16:00 96 Room Air 08/17/16 16:00 79 08/17/16 15:02 36.8 75 21 119/71 (87) 97 Room Air 08/17/16 14:52 36.5 85 20 96 Room Air 08/17/16 12:00 85 08/17/16 12:00 96 Room Air 08/17/16 10:57 36.5 81 20 101/63 (76) 97 Room Air 08/17/16 10:56 87 98 08/17/16 08:00 79 08/17/16 08:00 96 Room Air 08/17/16 07:27 36.6 79 20 147/81 (103) 95 Room Air 08/17/16 04:00 Room Air 08/17/16 03:27 36.7 77 18 135/82 (99) 96 08/17/16 00:02 37.0 87 16 132/73 (92) 95 Room Air 08/17/16 00:00 Room Air 08/16/16 20:20 Room Air 08/16/16 19:20 36.6 99 18 115/72 (86) 99 Room Air Laboratory Results: Last 24 Hours Test 08/17/16 07:14 White Blood Count 8.14 K/uL Red Blood Count 3.79 M/uL Hemoglobin 12.2 g/dL Hematocrit 35.7 % Mean Corpuscular Volume 94.2 fL Mean Corpuscular Hemoglobin 32.2 pg Mean Corpuscular Hemoglobin Concent 34.2 g/dl RDW Standard Deviation 50.4 fL RDW Coefficient of Variation 15.0 % Platelet Count 206 K/uL Mean Platelet Volume 10.1 fL Prothrombin Time 12.2 SECONDS Prothromb Time International Ratio 1.1 Sodium Level 136 mmol/L Potassium Level 4.3 mmol/L Chloride Level 105 mmol/L Carbon Dioxide Level 24 mmol/L Anion Gap 7.0 mmol/L Blood Urea Nitrogen 15 mg/dl Creatinine 0.90 mg/dl Est Creatinine Clear Calc Drug Dose 51.9 ml/min Estimated GFR () 87.5 Estimated GFR (Non- 75.5 BUN/Creatinine Ratio 17.0 Random Glucose 86 mg/dl Calcium Level 7.7 mg/dl
[2016-08-20 14:36] LABS: ANTITHROMBINIII ACTIVITY** 69 % activity (80-120); LUPUS ANTICOAGULANT** TC36573X Negative (Negative); PROTEIN C ACTIVITY** TC 1777X 75 % (70-180); PROTEIN S ACT(FUNCT)**1779X 87 % (70-150)
== END 2016-08-17 16:38 | disposition home health service (06) | DRG 176 ==
LOC: C.EDB 06:22 → C.2T 09:30 → ENRESERV 10:08
PROVIDERS: ADMIT Hospitalist; ATTEND Hospitalist
DX: I26.99 Other pulmonary embolism without acute cor pulmonale (principal); I25.2 Old myocardial infarction; I10 Essential (primary) hypertension; J98.4 Other disorders of lung; I48.91 Unspecified atrial fibrillation; I25.10 Atherosclerotic heart disease of native coronary artery without angina pectoris; Z79.82 Long term (current) use of aspirin; Z79.899 Other long term (current) drug therapy; Z95.5 Presence of coronary angioplasty implant and graft; Z87.891 Personal history of nicotine dependence

== ENCOUNTER 2016-08-25 19:30 | Emergency (ER) | payer BC ==
[~2016-08-25] VITALS: Ht 172.7 cm; Wt 65.8 kg
[~2016-08-25 19:30] MED LIST changes: +CMD5 PO; +LSN5 PO; +LVNIS100 SQ; -METO25TA56 PO; -TICA1TAB PO; +TPRSR50 PO
[2016-08-25 19:33] VITALS: TEMP 36.6
--- NOTE | 2016-08-25 20:18 | EMERGENCY ROOM VISIT NOTE ---
History Report prepared by Yaritza: Priscilla Dennison Under the Supervision of: Dr. Javier Leblanc D.O. First contact with patient: 19:56 Chief Complaint: CHEST PAIN Stated Complaint: LF SIDE CHEST PAIN History of Present Illness The patient is an 89 year old male who presents to the Emergency Room with complaints of intermittent chest pain that started earlier today. He is accompanied by his and daughter. He rates his pain as a 5/10 in severity. Breathing worsens his discomfort. His reports a little over 1 week ago, the patient was discharged from the hospital after a 4 day stay for a PE. The patient denies any fevers, chills, diaphoresis, shortness of breath or nausea. He admits to a minor cough, but states "it's a dry cough". He denies any pain or weakness in his legs. His primary care physician is Dr. Chicas, and he reports he saw Dr. Chicas's PA last week. Source of History: patient Onset: earlier today Position: chest Symptom Intensity: 5/10 Timing: intermittent Modifying Factors (Worsening): breathing Associated Symptoms: + cough, No fevers, No chills, No diaphoresis, No SOB, No nausea Review of Systems See HPI for pertinent positives & negatives. A total of 10 systems reviewed and were otherwise negative. Past Medical & Surgical Medical Problems: (1) H/O non-ST elevation myocardial infarction (NSTEMI) (2) Heart attack (3) Laryngeal polyp (4) Pneumonia (5) Sleep apnea Family History Diabetes mellitus FH: cancer Hypertension Social History Smoking Status: Never Smoker Smokeless Tobacco Use: No Alcohol Use: occasionally Drug Use: none Marital Status: Housing Status: lives with family Occupation Status: retired Current/Historical Medications Scheduled [place] (Gilchrist), 250 MG PO DAILY Ascorbic Acid (Vitamin C), 500 MG PO DAILY Aspirin (Aspirin 81), 81 MG PO DAILY Atorvastatin (Lipitor), 40 MG PO DAILY Calcium (Calcium), 500 MG PO DAILY Cholecalciferol (Vitamin D3), 1,000 UNITS PO DAILY Isosorbide Mononitrate Ext Rel (Imdur Ext Rel), 60 MG PO QAM Lisinopril (Lisinopril), 5 MG PO QAM Metoprolol Succinate (Metoprolol Succinate ER), 50 MG PO BID Multivitamin (Multivitamin), 1 TAB PO DAILY Warfarin Sod (Jantoven), 6 MG PO DAILY@1600 Scheduled PRN Nitroglycerin (Nitrostat), 0.4 MG UT UD PRN for Chest Pain Allergies Coded Allergies: No Known Allergies (Verified , 08/25/16) Physical Exam Vital Signs Date Time Temp Pulse Resp B/P (MAP) Pulse Ox O2 Delivery O2 Flow Rate FiO2 08/25/16 23:14 73 18 135/82 96 08/25/16 22:02 70 18 146/81 97 Room Air 08/25/16 20:52 97 Room Air 08/25/16 20:52 97 Room Air 08/25/16 20:29 73 08/25/16 19:33 36.6 114 22 119/62 96 Room Air Physical Exam GENERAL: Patient is awake, alert, in no acute distress, patient is resting comfortably and showing no signs of anxiety EYES: The conjunctivae are clear. The pupils are round and reactive. EARS, NOSE, MOUTH AND THROAT: The nose is without any evidence of any deformity. Mucous membranes are moist tongue is midline NECK: The neck is nontender and supple. RESPIRATORY: Normal respiratory effort is noted there is no evidence of wheezing rhonchi or rales CARDIOVASCULAR: Regular rate and rhythm noted there no murmurs rubs or gallops normal S1 normal S2 GASTROINTESTINAL: The abdomen is soft. Bowel sounds are present in all quadrants. Abdomen is nontender MUSCULOSKELETAL/EXTREMITIES: There is no evidence of gross deformity full range of motion is noted in the hips and shoulders SKIN: No edema, no calf tenderness elicited on exam. There is no obvious evidence of any rash. There are no petechiae, pallor or cyanosis noted. NEUROLOGIC: Patient is awake alert and oriented x3 Medical Decision & Procedures ER Provider Diagnostic Interpretation: Radiology results as stated below per my review and radiologist interpretation: CHEST ONE VIEW PORTABLE CLINICAL HISTORY: EVALUATE RESPIRATORY DISTRESS. DYSPNEA COMPARISON STUDY: 08/14/2016 FINDINGS: Focal residual scarring right midlung. Lungs otherwise are clear. Diaphragms smooth. Costophrenic angles are sharp. IMPRESSION: Chronic change. No acute process. The above report was generated using voice recognition software. It may contain grammatical, syntax or spelling errors. Electronically signed by: Lobo Velázquez M.D. 08/25/2016 8:17 PM Laboratory Results 08/25/16 20:50 Red Blood Count 3.61, Mean Corpuscular Volume 96.4, Mean Corpuscular Hemoglobin 32.4, Mean Corpuscular Hemoglobin Concent 33.6, Mean Platelet Volume 10.1, Neutrophils (%) (Auto) 75.9, Lymphocytes (%) (Auto) 13.8, Monocytes (%) (Auto) 7.0, Eosinophils (%) (Auto) 2.0, Basophils (%) (Auto) 0.8, Neutrophils # (Auto) 6.00, Lymphocytes # (Auto) 1.09, Monocytes # (Auto) 0.55, Eosinophils # (Auto) 0.16, Basophils # (Auto) 0.06 08/25/16 20:50 Test 08/25/16 20:50 08/25/16 21:45 White Blood Count 7.90 K/uL (4.8-10.8) Red Blood Count 3.61 M/uL (4.7-6.1) Hemoglobin 11.7 g/dL (14.0-18.0) Hematocrit 34.8 % (42-52) Mean Corpuscular Volume 96.4 fL (80-100) Mean Corpuscular Hemoglobin 32.4 pg (25-34) Mean Corpuscular Hemoglobin Concent 33.6 g/dl (32-36) Platelet Count 232 K/uL (130-400) Mean Platelet Volume 10.1 fL (7.4-10.4) Neutrophils (%) (Auto) 75.9 % Lymphocytes (%) (Auto) 13.8 % Monocytes (%) (Auto) 7.0 % Eosinophils (%) (Auto) 2.0 % Basophils (%) (Auto) 0.8 % Neutrophils # (Auto) 6.00 K/uL (1.4-6.5) Lymphocytes # (Auto) 1.09 K/uL (1.2-3.4) Monocytes # (Auto) 0.55 K/uL (0.11-0.59) Eosinophils # (Auto) 0.16 K/uL (0-0.5) Basophils # (Auto) 0.06 K/uL (0-0.2) RDW Standard Deviation 55.9 fL (36.4-46.3) RDW Coefficient of Variation 15.9 % (11.5-14.5) Immature Granulocyte % (Auto) 0.5 % Immature Granulocyte # (Auto) 0.04 K/uL (0.00-0.02) Anion Gap 7.0 mmol/L (3-11) Est Creatinine Clear Calc Drug Dose 46.6 ml/min Estimated GFR () 77.0 Estimated GFR (Non- 66.4 BUN/Creatinine Ratio 20.1 (10-20) Calcium Level 8.6 mg/dl (8.5-10.1) Total Bilirubin 0.2 mg/dl (0.2-1) Aspartate Amino Transf (AST/SGOT) 27 U/L (15-37) Alanine Aminotransferase (ALT/SGPT) 38 U/L (12-78) Alkaline Phosphatase 57 U/L (45-117) Total Creatine Kinase 54 U/L (39-308) Creatine Kinase MB 1.7 ng/ml (0.5-3.6) Creatine Kinase MB Ratio 3.1 (0-3.0) Troponin I < 0.015 ng/ml (0-0.045) Total Protein 7.0 gm/dl (6.4-8.2) Albumin 2.7 gm/dl (3.4-5.0) Globulin 4.3 gm/dl (2.5-4.0) Albumin/Globulin Ratio 0.6 (0.9-2) Prothrombin Time 26.7 SECONDS (9.0-12.0) Prothromb Time International Ratio 2.4 (0.9-1.1) Activated Partial Thromboplast Time 38.3 SECONDS (21.0-31.0) Partial Thromboplastin Ratio 1.5 Laboratory results per my review. ECG Indication: chest pain Rate (beats per minute): 77 Rhythm: normal sinus (normal sinus rhythm) Findings: no ectopy, other (No acute ST segment abnormality) Change: no significant change (No change when compared to EKG from 08/17/16) ED Course 2002: The patient was evaluated in room C2B. A complete history and physical examination were performed. Medical Decision Medication Reconciliation: I attest that I have personally reviewed the patient' s current medications list. Blood pressure screening: Patient was found to have an elevated blood pressure and was referred to their primary doctor for recheck and further treatment. Prior records/ancillary studies reviewed. Triage Nursing notes reviewed. The patient's history was concerning for chest pain. Differential diagnosis: Etiologies such as cardiac ischemia, aortic dissection, pulmonary embolism, pneumonia, pneumothorax, musculoskeletal, infections, pericarditis, myocarditis , esophageal rupture, gastrointestinal, as well as others were entertained. The patient is an 89-year-old male who presented to the emergency department for an evaluation of chest pain. The patient has had ongoing chest pain for greater than 24 hours. 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 The patient continues to take his blood thinners. The patient's chest pain does not appear to be cardiac in nature at this time. His EKG showed no acute changes and his cardiac biomarkers were not elevated despite having ongoing pain for greater than 6 hours. I discussed the patient's laboratory and radiographic studies with him. He did not wish to have any medication for pain at this time. He has a follow-up appointment with the wirer in a few days and he was encouraged to keep this appointment and discuss the possibility that this pain is from the pulmonary embolism. He was encouraged to continue all medications as prescribed and rest. He was also encouraged return to the emergency department immediately if symptoms change worsen or the need arises. Impression Primary Impression: Left sided chest pain Additional Impression: History of pulmonary embolism Scribe Attestation The scribe's documentation has been prepared under my direction and personally reviewed by me in its entirety. I confirm that the note above accurately reflects all work, treatment, procedures, and medical decision making performed by me. Departure Information Dispostion Home / Self-Care Referrals Raheem Chicas M.D. (PCP) Patient Instructions ED Chest Pain Atypical Unkn Cause, [facility] Additional Instructions Follow-up with your wirer this week as scheduled. Rest and avoid any strenuous activity. Return to the emergency department immediately if symptoms change worsen or the need arises. Problem Qualifiers
[2016-08-25 20:33] VITALS: Ht 172.7 cm; Wt 65.8 kg
[2016-08-25 20:52] VITALS: O2SAT 97
[2016-08-25] MEDS ORDERED: WARF6TAB5 PO (20:56)
[2016-08-25 21:06] LABS: BASO % 0.8 %; BASO ABS # 0.06 K/uL (0-0.2); COMPLETE YES; HEMATOCRIT 34.8 % (42-52); IG% 0.5 %; LYMPH % 13.8 %; LYMPH ABS # 1.09 K/uL (1.2-3.4); MEAN CELL VOLUME 96.4 fL (80-100); MEAN CORPUSCULAR HEMOGLOBIN 32.4 pg (25-34); MEAN CORPUSCULAR HGB CONC 33.6 g/dl (32-36); MEAN PLATELET VOLUME 10.1 fL (7.4-10.4); NEUT % 75.9 %; PLATELET COUNT 232 K/uL (130-400); RED BLOOD COUNT 3.61 M/uL (4.7-6.1)
[2016-08-25 21:25] LABS: ALT/SGPT 38 U/L (12-78); BLOOD UREA NITROGEN 20 mg/dl (7-18); BUN/CREATININE RATIO 20.1 (10-20); CALCIUM 8.6 mg/dl (8.5-10.1); CARBON DIOXIDE 26 mmol/L (21-32); CHLORIDE 103 mmol/L (98-107); GLUCOSE 102 mg/dl (70-99); SODIUM 136 mmol/L (136-145)
[2016-08-25 21:30] LABS: ALB/GLOB RATIO 0.6 (0.9-2); ALKALINE PHOSPHATASE 57 U/L (45-117); AST/SGOT 27 U/L (15-37); CKMB/CK RATIO 3.1 (0-3.0)
[2016-08-25 22:04] LABS: INR 2.4 (0.9-1.1); PARTIAL THROMBOPLASTIN RATIO 1.5; PROTHROMBIN TIME (PATIENT) 26.7 SECONDS (9.0-12.0)
[2016-08-25 23:14] VITALS: BP 135/82; PULSE 73; O2SAT 96
== END 2016-08-25 23:15 | disposition home or self-care (01) ==
LOC: C.EDB 19:31 → C.EDA 23:15
DX: R07.9 Chest pain, unspecified (principal); Z86.711 Personal history of pulmonary embolism; I25.2 Old myocardial infarction; Z87.01 Personal history of pneumonia (recurrent); Z83.3 Family history of diabetes mellitus; Z82.49 Family history of ischemic heart disease and other diseases of the circulatory system; Z79.82 Long term (current) use of aspirin

== ENCOUNTER → 2016-10-17 | Outpatient (CLI) | payer BC ==
[~2016-10-17] MED LIST changes: -CMD5 PO; -LVNIS100 SQ; +WARF6TAB5 PO
[2016-10-17 17:55] LABS: INR 1.9 (0.9-1.1); PROTHROMBIN TIME (PATIENT) 20.4 SECONDS (9.0-12.0)
== END | disposition home or self-care (01) ==
LOC: C.LABPBG 15:38
PROVIDERS: ATTEND Internal Medicine Geriatric Medicine
DX: I26.99 Other pulmonary embolism without acute cor pulmonale (principal)

== ENCOUNTER 2017-01-04 18:51 | Emergency (ER) | payer BC ==
[~2017-01-04] VITALS: Ht 175.3 cm; Wt 68.1 kg
[2017-01-04 18:53] VITALS: TEMP 36.9; Ht 175.3 cm; Wt 68.1 kg
[2017-01-04] MEDS ORDERED: WARF-246 PO ×2 (19:25)
[2017-01-04] MEDS ORDERED: TPRSR/50 PO (19:25)
[2017-01-04 19:33] LABS: MANUAL MICROSCOPIC REQUIRED? YES; URINE APPEARANCE CLOUDY (CLEAR); URINE BILIRUBIN NEG (NEG); URINE COLOR BROWN; URINE NITRITE NEG (NEG); URINE PH 5.5 (4.5-7.5); URINE SPECIFIC GRAVITY 1.025 (1.000-1.030); UROBILINOGEN NEG (NEG)
[2017-01-04 19:34] LABS: REVIEW REQ? NO
[2017-01-04 19:48] LABS: URINE RBC >30 /hpf (0-4)
[2017-01-04 19:51] LABS: URINE BACTERIA 2+ (NEG); URINE MUCUS PRESENT (NONE PRSENT)
[2017-01-04 19:52] LABS: ZZUR CULT IF INDIC CLEAN CATCH YES
[2017-01-04] MEDS ORDERED: CIPROFLOXACIN 500 MG TAB PO STA (20:22)
[2017-01-04 20:25] LABS: ISTAT CREATININE 1.2 mg/dl (0.6-1.3); ISTAT HEMOGLOBIN 11.9 g/dl (14.0-18.0); ISTAT IONIZED CALCIUM 1.17 mmol/l (1.12-1.32)
[2017-01-04] MEDS ORDERED: CIPR-255 PO (20:45)
--- NOTE | 2017-01-04 20:45 | EMERGENCY ROOM VISIT NOTE ---
History Report prepared by Yaritza: Shayan Kruse Under the Supervision of: Dr. Geoffrey Brown D.O. First contact with patient: 18:58 Chief Complaint: URINARY SYMPTOMS Stated Complaint: BLOOD IN URINE Nursing Triage Summary: pt reports blood in urine last 3 x urinated today. denies any pain . pt is on coumadin stopped recently History of Present Illness The patient is a 89 year old male who presents to the Emergency Room with complaints of persistent hematuria starting this afternoon. The patient is denying any pain with urination, fevers, back pain, and flank pain. He is currently on Coumadin. The patient's INR was two days ago, and he has not had any recent traumas. Source of History: patient Onset: this afternoon Position: other (global) Quality: other (hematuria) Timing: other (persistent) Associated Symptoms: No fevers, No back pain Review of Systems See HPI for pertinent positives & negatives. A total of 10 systems reviewed and were otherwise negative. Past Medical & Surgical Medical Problems: (1) H/O non-ST elevation myocardial infarction (NSTEMI) (2) Heart attack (3) Laryngeal polyp (4) Pneumonia (5) Sleep apnea Family History Diabetes mellitus FH: cancer Hypertension Social History Smoking Status: Never Smoker Alcohol Use: occasionally Drug Use: none Marital Status: Housing Status: lives with family Occupation Status: retired Current/Historical Medications Scheduled [place] (Tehama), 250 MG PO DAILY Ascorbic Acid (Vitamin C), 500 MG PO DAILY Aspirin (Aspirin 81), 81 MG PO DAILY Atorvastatin (Lipitor), 40 MG PO DAILY Calcium (Calcium), 500 MG PO DAILY Cholecalciferol (Vitamin D3), 1,000 INTER.UNIT PO DAILY Ciprofloxacin Hcl (Cipro), 500 MG PO BID Isosorbide Mononitrate Ext Rel (Imdur Ext Rel), 60 MG PO QAM Metoprolol Succinate (Metoprolol Succinate ER), 50 MG PO BID Multivitamin (Multivitamin), 1 TAB PO DAILY Warfarin Sodium (Warfarin Sodium), 5 MG PO 5XWK Warfarin Sodium (Warfarin Sodium), 7.5 MG PO 2XWK Scheduled PRN Nitroglycerin (Nitrostat), 0.4 MG UT UD PRN for Chest Pain Allergies Coded Allergies: No Known Allergies (Verified , 08/25/16) Physical Exam Vital Signs Date Time Temp Pulse Resp B/P (MAP) Pulse Ox O2 Delivery O2 Flow Rate FiO2 01/04/17 20:53 67 16 164/94 97 01/04/17 18:53 36.9 98 18 145/93 95 Room Air Physical Exam CONSTITUTIONAL/VITAL SIGNS: Reviewed / noted above. GENERAL: Non-toxic in appearance. INTEGUMENTARY: Warm, dry, and [place]. HEAD: Normocephalic. EYES: without scleral icterus or trauma. ENT/OROPHARYNX: clear and moist. LYMPHADENOPATHY/NECK: Is supple without lymphadenopathy or meningismus. RESPIRATORY: Lungs clear and equal. CARDIOVASCULAR: Regular rate and rhythm. GI/ABDOMEN: Soft and nontender. No organomegaly or pulsatile mass. No rebound or guarding. Normal bowel sounds. EXTREMITIES: Warm and well perfused. BACK: No CVA tenderness. NEUROLOGICAL: Intact without focal deficits. PSYCHIATRIC: normal affect. MUSCULOSKELETAL: Normally developed with good muscle tone. Medical Decision & Procedures Laboratory Results Test 01/04/17 19:08 01/04/17 19:21 01/04/17 19:24 Urine Color BROWN Urine Appearance CLOUDY (CLEAR) Urine pH 5.5 (4.5-7.5) Urine Specific [place] 1.025 (1.000-1.030) Urine Protein 1+ (NEG) Urine Glucose (UA) NEG (NEG) Urine Ketones NEG (NEG) Urine Occult Blood 3+ (NEG) Urine Nitrite NEG (NEG) Urine Bilirubin NEG (NEG) Urine Urobilinogen NEG (NEG) Urine Leukocyte Esterase NEG (NEG) Urine RBC >30 /hpf (0-4) Urine WBC 1-5 /hpf (0-5) Urine Epithelial Cells 10-20 /lpf (0-5) Urine Bacteria 2+ (NEG) Urine Mucus PRESENT (NONE PRSENT) Bedside Prothrombin Time INR 3.5 (0.9-1.1) Bedside Hemoglobin 11.9 g/dl (14.0-18.0) Bedside Hematocrit 35 % (42-52) Bedside Sodium 141 mEq/L (135-144) Bedside Potassium 4.2 mEq/L (3.3-5.0) Bedside Chloride 105 mEq/L (101-112) Bedside Total CO2 25 mEq/l (24-31) Anion Gap 17.0 mmol/L (16-25) Bedside Blood Urea Nitrogen 28 mg/dl (7-18) Bedside Creatinine 1.2 mg/dl (0.6-1.3) Bedside Glucose (other) 101 mg/dl (70-99) Bedside Ionized Calcium ([place]) 1.17 mmol/l (1.12-1.32) Laboratory results as stated above per my review. Medications Administered Medications (Trade) Dose Ordered Sig/Cecilia Route Start Time Stop Time Status Last Admin Dose Admin Ciprofloxacin (Cipro Tab) 500 mg NOW STAT PO 01/04/17 20:22 01/04/17 20:24 DC 01/04/17 20:27 500 MG ED Course 1857: Previous medical records were reviewed. The patient was evaluated in room B11. A complete history and physical examination was performed. 2021: Cipro Tab 500mg PO 2045: On reevaluation, the patient is doing well and stable. I discussed the results and findings with the patient. He verbalized agreement of the treatment plan. He was discharged home. Medical Decision Differential considered: pancreatitis, hepatitis, or acute cholecystitis, AAA, UTI, pyelonephritis, kidney stones, appendicitis, diverticulitis, shingles, bowel obstruction mesenteric ischemia, intussusception,hernia, testicular torsion. This is an 89-year-old male who presents to the ED with a chief complaint of hematuria. The patient states the symptoms started this afternoon. He denied having any other symptoms. Denies any trauma. Denies any flank pains. The patient is on Coumadin. His last Coumadin check was 2 days ago and was 3.0. They have modified his Coumadin dosing slightly. The patient denies any other significant symptoms. His vital signs are stable. His physical exam was unremarkable. He has no CVA tenderness and no abdominal tenderness. There is no other areas of bruising noted on exam. The urine suggest UTI. INR is 3.5. Chemistry panel was unremarkable. The patient was told the results the test. He was started on Cipro by mouth. He is felt to be stable for discharge and outpatient follow-up. Medication Reconcilliation Current Medication List: was personally reviewed by me Blood Pressure Screening Patient's blood pressure: Elevated blood pressure Blood pressure disposition: Elevated BP felt to be situational Impression Primary Impression: UTI (urinary tract infection) Additional Impressions: Hematuria Elevated INR Scribe Attestation The scribe's documentation has been prepared under my direction and personally reviewed by me in its entirety. I confirm that the note above accurately reflects all work, treatment, procedures, and medical decision making performed by me. Departure Information Dispostion Home / Self-Care Prescriptions Ciprofloxacin Hcl (CIPRO) 500 Mg Tab 500 MG PO BID, #14 TAB Prov: Geoffrey Brown D.O. 01/04/17 Referrals Raheem Chicas M.D. (PCP) Forms HOME CARE DOCUMENTATION FORM, IMPORTANT VISIT INFORMATION Patient Instructions My [facility], UTI Additional Instructions Cipro as prescribed for urinary tract infection. Stop Coumadin for next 2 days. Follow-up with PCP next week if symptoms persist. Return for worsening or new symptoms. Problem Qualifiers
[2017-01-04 20:53] VITALS: BP 164/94; PULSE 67; O2SAT 97
== END 2017-01-04 20:59 | disposition home or self-care (01) ==
LOC: C.EDB 18:52
DX: N39.0 Urinary tract infection, site not specified (principal); R31.9 Hematuria, unspecified; R79.1 Abnormal coagulation profile; I21.4 Non-ST elevation (NSTEMI) myocardial infarction; Z83.3 Family history of diabetes mellitus; Z79.82 Long term (current) use of aspirin; Z79.01 Long term (current) use of anticoagulants; Z51.81 Encounter for therapeutic drug level monitoring

== ENCOUNTER → 2017-01-09 | Outpatient (CLI) | payer BC ==
[~2017-01-09] MED LIST changes: +CIPR-255 PO; -LSN5 PO; +TPRSR/50 PO; -TPRSR50 PO; +WARF-246 PO; -WARF6TAB5 PO
[2017-01-09 12:19] LABS: BASO % 0.5 %; BASO ABS # 0.04 K/uL (0-0.2); COMPLETE YES; EOS % 2.2 %; HEMATOCRIT 38.7 % (42-52); IG% 0.3 %; LYMPH ABS # 1.76 K/uL (1.2-3.4); MEAN CELL VOLUME 95.8 fL (80-100); MEAN CORPUSCULAR HEMOGLOBIN 30.9 pg (25-34); MEAN CORPUSCULAR HGB CONC 32.3 g/dl (32-36); MEAN PLATELET VOLUME 11.3 fL (7.4-10.4); PLATELET COUNT 174 K/uL (130-400); RED BLOOD COUNT 4.04 M/uL (4.7-6.1); WHITE BLOOD COUNT 7.34 K/uL (4.8-10.8)
[2017-01-09 12:20] LABS: URINE APPEARANCE CLEAR (CLEAR); URINE BILIRUBIN NEG (NEG); URINE COLOR DK YELLOW; URINE EPITHELIAL CELL AUTO 0-5 /lpf (0-5); URINE NITRITE NEG (NEG); URINE SPECIFIC GRAVITY 1.017 (1.000-1.030); UROBILINOGEN NEG (NEG); ZZUR CULT IF INDIC CLEAN CATCH NO
[2017-01-09 12:22] LABS: MANUAL MICROSCOPIC REQUIRED? NO; REVIEW REQ? NO
[2017-01-09 13:15] LABS: BLOOD UREA NITROGEN 23 mg/dl (7-18); BUN/CREATININE RATIO 20.8 (10-20); CALCIUM 9.1 mg/dl (8.5-10.1); CARBON DIOXIDE 27 mmol/L (21-32); CHLORIDE 103 mmol/L (98-107); CREATININE 1.11 mg/dl (0.60-1.40); GLUCOSE 86 mg/dl (70-99); SODIUM 137 mmol/L (136-145)
== END | disposition home or self-care (01) ==
LOC: C.LABPBG 10:54
PROVIDERS: ATTEND Internal Medicine Geriatric Medicine
DX: R31.0 Gross hematuria (principal); R41.81 Age-related cognitive decline; M54.16 Radiculopathy, lumbar region; I10 Essential (primary) hypertension

== ENCOUNTER → 2017-01-15 | Outpatient (CLI) | payer BC ==
[~2017-01-15] MED LIST changes: +OPTIRAY 320 IV PRN
--- NOTE | 2017-01-15 11:06 | DIAGNOSTIC IMAGING REPORT ---
ABD/PELVIS COMBO CT DOSE: 576.67 mGy.cm HISTORY: Hematuria R31.0 Gross hematuriahematuria [id number] TECHNIQUE: Multiaxial CT images of the abdomen and pelvis were performed pre and post intravenous contrast enhancement. A dose lowering technique was utilized adhering to the principles of ALARA. COMPARISON STUDY: None. FINDINGS: Lung bases are clear. Liver spleen and pancreas enhance uniformly. Right kidney is negative for hydronephrosis. Parietal pattern in terms of enhancement is unremarkable. There is a small parapelvic cyst. Left kidney demonstrates a 2.5 cm slightly hyperdense cyst. It shows uniform Hounsfield unit measurements at 12 throughout all phases. No enhancing lesion is identified. Three-dimensional evaluation of the collecting system shows no definite filling defect. Ureters normal in course and caliber. Findings of mild bladder wall thickening. Bowel pattern is considered nonobstructive. IMPRESSION: 1. 2.5 cm slightly hyperdense left renal cyst. 2. Otherwise negative study of the upper urinary tracts. 3. Mild bladder wall thickening with cystoscopy suggested. 4. Study is otherwise negative. The above report was generated using voice recognition software. It may contain grammatical, syntax or spelling errors. Electronically signed by: Lobo Velázquez M.D. 01/15/2017 11:04 AM Dictated Date/Time: 01/15/2017 10:48 AM
== END | disposition home or self-care (01) ==
LOC: C.CTS 10:10
PROVIDERS: ATTEND Internal Medicine Geriatric Medicine
DX: R31.0 Gross hematuria (principal)

== ENCOUNTER → 2017-02-22 | Outpatient (CLI) | payer BC ==
[~2017-02-22] MED LIST changes: -OPTIRAY 320 IV PRN
== END | disposition home or self-care (01) ==
LOC: C.LABSPEC 14:05
PROVIDERS: ATTEND Urology
DX: Z00.00 Encounter for general adult medical examination without abnormal findings (principal); G56.00 Carpal tunnel syndrome, unspecified upper limb; L57.0 Actinic keratosis; E78.5 Hyperlipidemia, unspecified; R41.81 Age-related cognitive decline; N40.0 Benign prostatic hyperplasia without lower urinary tract symptoms; R31.0 Gross hematuria; I25.10 Atherosclerotic heart disease of native coronary artery without angina pectoris

== ENCOUNTER → 2017-03-05 | Outpatient (CLI) | payer BC ==
--- NOTE | 2017-03-05 11:11 | DIAGNOSTIC IMAGING REPORT ---
(CHEST) THORAX WITHOUT CT DOSE: 433.24 mGycm HISTORY: PULMONARY NODULE TECHNIQUE: Multiaxial CT images of the chest were performed without contrast. A dose lowering technique was utilized adhering to the principles of ALARA. COMPARISON: Chest CTA 08/14/2016. FINDINGS: No pleural effusions. No pneumothorax. The central airways are patent. Stable nodular density within the right middle lobe measuring 2.3 x 1.5 cm. This favors atelectasis/scarring. There is a punctate calcified granuloma within the central aspect. Ground less densities within the right lung base posteriorly favor mild dependent change. Stable 4 mm subpleural nodule within the right upper lobe on image 147. No new pulmonary nodules. No fractures within the visualized osseous structures. The visualized liver, spleen, and adrenal glands are unremarkable. No mediastinal or hilar lymphadenopathy. Normal caliber thoracic aorta. The heart is normal in size. IMPRESSION: 1. Stable right middle lobe nodular density. This favors atelectasis/scarring. Continued six-month chest CT follow-up is recommended. 2. Stable 4 mm indeterminate pulmonary nodule within the right upper lobe. Electronically signed by: Cipriano Ashton M.D. 03/05/2017 11:10 AM Dictated Date/Time: 03/05/2017 11:01 AM
== END | disposition home or self-care (01) ==
LOC: C.CTS 09:54
PROVIDERS: ATTEND Internal Medicine Pulmonary Disease
DX: R91.1 Solitary pulmonary nodule (principal)

== ENCOUNTER → 2017-05-22 | Outpatient (CLI) | payer BC | END | disposition home or self-care (01) | LOC: C.PATHSPEC 17:06 | PROVIDERS: ATTEND Physician Assistant | DX: L57.0 Actinic keratosis (principal) ==